=== PATIENT | female | born 1950 | race Caucasian/White ===

== ENCOUNTER 2020-02-05 16:07 | Emergency (ER) | payer OTHER, SELFPAY ==
--- NOTE | ~2020-02-05 | XR_ITS ---
EXAMINATION: XR knee LT min 4V EXAM DATE: 02/05/2020 16:38 INDICATION: Twisting injury, subsequent left knee pain. Initial encounter. TECHNIQUE: Left knee frontal, crosstable lateral, orthogonal oblique projections for interpretation. There is no prior study for comparison. FINDINGS: No evidence osteochondral defect or joint body in the left knee joint. There is mild to m oderate patellofemoral and medial tibiofemoral compartment primary osteoarthritis. There are no acute fractures or dislocations identified. There is no subcutaneous gas. There is small joint effusion. There are no radiopaque foreign bodies. IMPRESSION: 1. Left knee exam without acute osseous findings. 2. Small joint effusion. 3. Mild to moderate osteoarthritis. Reviewed, dictated and finalized at location A.
[2020-02-05 16:25] VITALS: BP 136/89; PULSE 77; RESP 18; TEMP 36.6; O2SAT 98
--- NOTE | 2020-02-05 16:33 | ED.GENADULT ---
HPI - General Adult General Chief complaint: Extremity Injury, Lower Stated complaint: Left Leg Pain Time Seen by Provider: 02/05/20 16:33 Source: patient and RN notes reviewed Mode of arrival: wheelchair Limitations: no limitations History of Present Illness HPI narrative: 69-year-old female presents with complains of left knee pain for the past 3 hours. Eliza says she missed a step twisting LT knee and fell today at approximately 13:00. No radiation of pain. No numbness or tingling, or bleeding. No swelling. No loss of mobility. Exacerbating factor consist of bearing weight. Denies hitting head, loss of consciousness, seizure activity, dizziness, or syncopal episodes. Remains active. The patient reports she have not been diagnosed with COVID-19. The patient reports she is not waiting for the results of a COVID-19 lab test. The patient reports she do not have fever, chills, weakness, or fatigue. The patient reports she do not have a new or worsening cough or shortness of breath. Denies chest pain. The patient reports she do not have any rhinorrhea, congestion, sore throat, loss of taste, nausea, vomiting, abdominal pain, and diarrhea. Tolerating po intake well. Denies recent traveling. Denies concerns for COVID-19 or exposures been home with limited outdoor exposure except for essential household needs and return home. At this time, patient is not suspected of having COVID-19. Some parts of this dictation were generated by voice recognition software and may contain typographical and/or grammatical inaccuracies. Related Data Home Medications Medication Instructions Recorded Confirmed carbidopa-levodopa tablet 02/05/20 levothyroxine 02/05/20 pitavastatin calcium [Livalo] mg 02/05/20 timolol maleate drp 02/05/20 Allergies Allergy/AdvReac Type Severity Reaction Status Date / Time No Known Drug Allergies Allergy Verified 03/10/11 11:13 Review of Systems Review of Systems: Narrative: CONSTITUTIONAL: Denies fever, chills, sweats. EYES: Denies visual changes, redness, discharge. ENT: Denies rhinorrhea, congestion, sore throat, otalgia. CARDIOVASCULAR: Denies chest pain, palpitations, edema. RESPIRATORY: Denies dyspnea, wheezing, cough. GASTROINTESTINAL: Denies abdominal pain, nausea, vomiting, diarrhea. SKIN: Denies rash or itching. MUSCULOSKELETAL: Denies acute back pain or myalgia. Complains of Left knee pain. NEUROLOGIC: Denies numbness, or focal weakness. PSYCHIATRIC: Denies anxiety or depression. All other systems reviewed & are unremarkable except as noted in HPI and below. [facility] Past Medical History Medical History (Updated 02/05/20 @ 17:09 by JAE Last) Glaucoma Hypercholesteremia Hypothyroidism Parkinson disease Surgical History Surgical History (Updated 02/05/20 @ 17:12 by JAE Last) History of brain surgery In the early s Family History Family History (Updated 02/05/20 @ 17:10 by JAE Last) Father Lung cancer Mother Heart disease Social History Social History (Updated 02/05/20 @ 17:11 by JAE Last) Smoking status: Former smoker Tobacco type: cigarettes Second hand tobacco smoke exposure: Yes (Occasionally when her smokes cigars) Alcohol intake: never Substance use: never Living arrangements: with family Occupation/Education: other Additional occupation/education comments: Homemaker Gender identity (if verbalized by the patient): Female Sexual Orientation (if Verbalized by the Patient): Straight or Heterosexual Comments At time of signature, agree with nurse past medical, surgical, social, and family history. There is no relevant family history pertinent to the presenting complaint. Exam Narrative: Exam Narrative: GENERAL: This is a well-nourished, well-developed patient, in no apparent distress. Talks in full sentences and ambulates with cane and LT an
[2020-02-05] MEDS: KETOROLAC (*BKC) 60 MG/2 ML VIAL IM (17:02)
== END 2020-02-05 17:22 | disposition home or self-care (01) ==
PROVIDERS: Emergency Provider Nurse Practitioner Family
DX: S83.92XA Sprain of unspecified site of left knee, initial encounter (principal); W10.9XXA Fall (on) (from) unspecified stairs and steps, initial encounter; H40.9 Unspecified glaucoma; E78.00 Pure hypercholesterolemia, unspecified; E03.9 Hypothyroidism, unspecified; G20 Parkinson's disease; Z87.891 Personal history of nicotine dependence
CPT/HCPCS: 73564; 96372; 99213; G0463; J1885

== ENCOUNTER 2023-03-10 13:53 | Inpatient (IN) | payer OTHER, MEDICAID, SELFPAY ==
--- NOTE | ~2023-03-10 | XR_ITS ---
EXAMINATION: XR chest 1V Exam Date/Time: 03/10/2023 14:30 NEWS CONTENT SPECIALIST HISTORY: fall Comparison: None. RESULT: Lines, tubes, and devices: Right axillary surgical clips. Lungs and pleura: Mild senescent change, otherwise clear. Cardiomediastinal silhouette: Unremarkable. Other: No acute osseous or upper abdominal finding. IMPRESSION: No acute cardiopulmonary process. Reviewed, dictated and finalized at location K. CONTENT SPECIALIST
--- NOTE | ~2023-03-10 | CT_ITS ---
EXAMINATION: CT cervical spine wo con DATE: 03/10/2023 14:58 INDICATION: trauma TECHNIQUE: Computed tomography (CT) of the cervical spine was performed without intravenous contrast. Automated exposure control and iterative reconstruction technique were employed. The dose-length pro duct was 155.91 mGy-cm. COMPARISON: None. FINDINGS: Vertebral Body Alignment: Intact. Minimal grade 1 anterolisthesis at C7-T1, likely on a degenerative basis Craniocervical and atlantoaxial alignment: Moderate degenerative change. Alignment intact. Osseous structures/fracture: No evidence of a lytic or blastic process in the visualized spine. No e vidence of acute fracture. Cervical soft tissues: The paraspinal soft tissues planes are maintained. Degenerative changes: Degenerative changes, without severe neural foraminal or central canal narrowin g. IMPRESSION: No acute fracture or traumatic malalignment in the cervical spine. Reviewed, dictated and finalized at location K. LY EDUCATOR
--- NOTE | ~2023-03-10 | XR_ITS ---
EXAM: XR hip RT min 3V w AP pelvis DATE: 03/10/2023 14:42 HISTORY: fall . COMPARISON: None available. FINDINGS: Decreased mineralization. Subcapital right femoral neck fracture with 4 mm medial displace ment and minimal lateral angulation. No other fracture detected. No lytic or blastic lesion. Mild lum bar degenerative disc disease and left hip osteoarthritis. No erosion or periosteal change. Soft tiss ues within normal limits. IMPRESSION: Mildly displaced and angulated right subcapital femoral neck fracture. Reviewed, dictated and finalized at location K. ING SAW OPERATOR IMPRESSION: Mildly displaced and angulated right subcapital femoral neck fractu re.
--- NOTE | ~2023-03-10 | XR_ITS ---
EXAMINATION: XR surgery orthopedic DATE: 03/12/2023 14:30 ORNAMENTAL METAL ERECTOR APPRENTICE INDICATION: RT HIP PINNING . TECHNIQUE: 2 fluoroscopic images of the right hip were obtained during right hip pinning performed by the surgeon. I was not present in the operating room. Fluoroscopy exposure time was 76.3 seconds. r Kerma 13.7 mGy. DAP 0.239 00 mGym2. COMPARISON: X-ray right hip 03/10/2023 FINDINGS: 3 cannulated screws fix the subcapital right proximal femoral fracture into near-anatomic alignment. IMPRESSION: Fluoroscopic documentation of right hip pinning. Please refer to the operative note for complete proc edural details . Reviewed, dictated and finalized at location K. MENTAL METAL ERECTOR APPRENTICE IMPRESSION: Fluoroscopic documentation of right hip pinning. Please refer to the operative note for complete procedural details .
--- NOTE | ~2023-03-10 | CT_ITS ---
EXAMINATION: CT brain wo con DATE: 03/10/2023 14:58 INDICATION: trauma . TECHNIQUE: Computed tomography (CT) of the head was performed without intravenous contrast. The mA wa s adjusted according to patient size. Iterative reconstruction technique was employed. The dose-lengt h product was 605.33 mGy-cm. COMPARISON: MR brain 02/05/2017. FINDINGS: Mild motion artifact. No acute intracranial hemorrhage or extra-axial fluid collection. No hydrocephalus, mass, or herniation. No acute ischemic infarct. Unremarkable dural venous sinus attenuation. No acute osseous abnormality. Right occipital craniectomy. Left ethmoid mucosal thickening, the remaining aerated spaces are clear. Mild atrophy and chronic white matter change. Atherosclerotic intracranial calcification. Bilateral l ens replacements. Right cerebellar atrophy/encephalomalacia. IMPRESSION: No acute intracranial process. Reviewed, dictated and finalized at location K. OOM ATTENDANT
[2023-03-10 13:54] VITALS: BP 125/52; PULSE 72; RESP 14; TEMP 36.6; O2SAT 98
--- NOTE | 2023-03-10 14:06 | ED.FALL ---
HPI - Fall General Chief Complaint: Fall Stated Complaint: fall with hip pain Time Seen by Provider: 03/10/23 14:06 History of Present Illness HPI Narrative: Patient is a 72-year-old female with history of Parkinson's, here after a fall. She states that she ambulates with a walker at [facility] and was walking down the hallway to meet her daughter when she lost hold of her walker and fell to the ground onto her right side. She notes that she landed on her right hip and was able to get off the floor with multiple assists at her facility. She was able to stand again but had difficulty bearing weight on the right hip. She does not believe she lost consciousness or hit her head. She does not believe she takes any blood thinners. No prodromal chest pain, light headedness or shortness of breath. She does not believe she has had any prior orthopedic surgeries. Daughter at bedside is DPOA and helps with additional history. Related Data Home Medications Medication Instructions Recorded Confirmed carbidopa 10 mg-levodopa 100 mg tablet 02/05/20 tablet levothyroxine 50 mcg tablet 02/05/20 pitavastatin calcium 1 mg tablet mg 02/05/20 (Livalo) timolol maleate 0.5 % eye drops drp 02/05/20 Allergies Allergy/AdvReac Type Severity Reaction Status Date / Time No Known Drug Allergies Allergy Other Verified 03/10/23 13:54 Review of Systems Review of Systems: All systems reviewed & are unremarkable except as noted in HPI and below PMFSH Past Medical History Medical History (Updated 03/10/23 @ 15:32 by Catalina Foy MD) Glaucoma Hypercholesteremia Hypothyroidism Parkinson disease Surgical History Surgical History (Updated 02/05/20 @ 17:12 by JAE Last) History of brain surgery In the early s Family History Family History (Updated 02/05/20 @ 17:10 by JAE Last) Father Lung cancer Mother Heart disease Social History Social History (Updated 02/05/20 @ 17:11 by JAE Last) Smoking status: Former smoker Tobacco type: cigarettes Second hand tobacco smoke exposure: Yes (Occasionally when her smokes cigars) Alcohol intake: never Substance use: never Living arrangements: with family Occupation/Education: other Additional occupation/education comments: Homemaker Gender identity (if verbalized by the patient): Female Sexual Orientation (if Verbalized by the Patient): Straight or Heterosexual Exam Narrative: GENERAL: Well-appearing, well-nourished, and in no acute distress. HEAD: Normocephalic, atraumatic. EYES: PERRLA and EOMI. ENT: Nares clear. Mucous membranes moist. NECK: Supple. No c-spine tenderness CHEST: Clear to auscultation. No respiratory distress. No chest wall tenderness. HEART: Regular rate and rhythm. Normal peripheral pulses. ABDOMEN: Soft, nontender, nondistended. EXTREMITIES: Bilateral upper extremities atraumatic tenderness appreciated. No thoracic or lumbar tenderness appreciated. She does have tenderness over the right lateral hip with decreased range of motion due to pain. Nontender femur, knee, tib-fib, ankle on the right side with normal ROM in the right knee and hip. Strong DP pulse which is equal bilaterally with normal sensation distal to the injury. No tenderness at the pubic symphysis or left hip/leg. SKIN: Warm, dry, no rash. NEURO: No focal deficits. Alert and oriented x3. PSYCH: Normal mood and affect. Course Course Emergency Course: Chart review performed. Patient here after a fall at [facility] onto her right side. Triage vitals within normal limits. Express care note in our system from 2019 reviewed she was seen for knee pain. Home health care discharge summary report on 12/19/22 also reviewed. They note she requires rollator/walker for gait. Patient seen and evaluated. Appears to have had a mechanical fall by losing her balance after letting go of her walker. XR
[2023-03-10] MEDS: HYDROcodone/acetaminophen (*CRX) 5-325 MG TABLET 1 TAB PO ×2 (14:22→22:40)
[2023-03-10 15:02] VITALS: BP 136/89; PULSE 92; RESP 16; O2SAT 100
[2023-03-10 15:19] VITALS: BP 166/83; PULSE 80; RESP 16; TEMP 36.7; O2SAT 98
[2023-03-10 16:01] VITALS: BP 123/89; PULSE 80; RESP 16; O2SAT 100
[2023-03-10 16:01] LABS: Basophils Percent Auto 0.3 % (0.2-1.2); Eosinophils Percent Auto 0.5 % (0-4.4); Hematocrit 40.9 % (37.0-47.0); Hemoglobin 13.9 g/dL (12.0-15.0); Immature Granulocyte Absolute 0.05 K/mm3 (0.00-0.031); Immature Granulocyte Percent A 0.8 % (0-0.5); Lymphocytes Absolute Auto 0.28 K/mm3 (0.9-3.2); Lymphocytes Percent Auto 4.3 % (18.3-44.2); Monocytes Absolute Auto 0.5 K/mm3 (0.1-0.6); Monocytes Percent Auto 7.1 % (2.6-8.5); Neutrophils Absolute Auto 5.7 K/mm3 (1.3-6.7); Platelet Count Result 164 k/mm3 (150-375); Red Blood Count 4.35 M/mm3 (4.2-5.4); Red Cell Distribution Width 12.5 % (11.5-14.5); White Blood Count 6.5 K/mm3 (4.5-10.0)
[2023-03-10 16:07] LABS: Appearance Urine Clear (Clear); Bacteria Urine None Seen /hpf; Bilirubin Urine Negative (Negative); Color Urine Yellow (Yellow); Glucose Urine UA Negative (Negative); Ketones Urine Negative (Negative); Leukocyte Esterase Ur Negative LEU/UL (Negative); Nitrate Urine Negative (Negative); Non Pathogenic Casts 0-2; Protein Urine Negative (Negative); Specific Grav Ur 1.012 (1.001-1.035); Squamous Epithelial Cell Urine None seen /hpf (Few); Urobilinogen Urine 0.2 mg/dL (<2.0); WBC Urine 0-5 /hpf
[2023-03-10 16:10] LABS: Add Urine Microscopic? YES; Alanine Aminotransferase 19 U/L (6-35); Albumin Level 4.1 g/dL (3.5-5.1); Alkaline Phosphatase 67 U/L (38-126); Anion Gap 6 mmol/L (8-16); Aspartate Amino Transferase 26 U/L (14-36); Bilirubin,Total 0.5 mg/dL (0.2-1.3); Blood Urea Nitrogen 11 mg/dL (7-17); Carbon Dioxide 28 mmol/L (22-30); Chloride 105 mmol/L (98-107); Estimated CRCL calculation 55 ml/min; Estimated Glomerular Filt Rate > 60; Glucose 112 mg/dL (65-110); Potassium 3.4 mmol/L (3.4-5.0); Sodium 139 mmol/L (137-145)
[2023-03-10] MEDS: MORPHINE SULFATE (*CRX) 4 MG/ML INJ 2 MG IV PUSH (16:11)
[2023-03-10] MEDS: ONDANSETRON INJ 4 MG/2 ML VIAL IV PUSH (16:11)
[2023-03-10 16:18] LABS: Partial Thromboplastin Time 27.3 SECONDS (22.3-36.8)
[2023-03-10 17:01] VITALS: BP 125/88; PULSE 78; RESP 16; TEMP 36.6; O2SAT 96
[2023-03-10 17:58] VITALS: BMI 20.9
--- NOTE | 2023-03-10 18:09 | ADMGEN ---
This patient, Eliza Gomez, was admitted to 3 [facility] Surg Room 307-01 AT 1740. Patient/family oriented to hospital policies and general routines including ID bracelet, bed and alarms, visiting hours, pain management, procedures, bathroom and other care routines, personal items, smoking policy, room service/diet, and visiting hours. Information on how to activate the Rapid Response Team has been discussed. Patient/Family are encouraged to report perceived risks to care and to ask questions if they do not understand what they are told or what they should do.
--- NOTE | 2023-03-10 19:38 | PM.IMHP ---
H&P: HPI History of Present Illness Date/Time: 03/10/23 17:30 Chief Complaint: Right hip pain after fall. Narrative: This is a pleasant 72-year-old female with Parkinson's disease, hypothyroidism, glaucoma, and breast cancer who presented to the emergency department via private vehicle from [facility] for evaluation of right hip pain after a fall. She was walking down the [facility] living facility when she lost a hold of her walker and fell down onto the ground landing on her right side. She was eventually able to get off the floor with multiple assist is but she had significant pain bearing weight on the right leg due to pain in the hip. She denies head trauma. There was no loss of consciousness or prodromal symptoms leading up to the fall. At the time my evaluation she has only minimal discomfort however has pretty significant pain when trying to move that right leg. Vital signs have been stable since arrival. CMP and CBC were pretty unremarkable. Hip and pelvis x-ray shows mildly displaced and angulated right subcapital femoral neck fracture and she is being admitted in this setting for pain control and orthopedic consultation. Review of Systems Review of Systems: Twelve systems were reviewed. 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 She cannot hear well a home the left side since she was young following resection of a benign brain tumor. No recent cold or flu symptoms. No chest pain or shortness breath. No syncope or near syncope. No history of cardiac or pulmonary disease. Except as documented, all other systems were reviewed and are negative. [facility] Past Medical History Medical History (Updated 03/10/23 @ 21:02 by Mary Gu PA-C) Breast cancer Dyslipidemia Glaucoma Hypothyroidism Parkinson disease Surgical History Surgical History (Updated 03/10/23 @ 20:58 by Mary Gu PA-C) History of bilateral mastectomy History of brain surgery In the 1980s, tumor was benign. Family History Family History Father Lung cancer Mother Heart disease Social History Social History (Updated 03/10/23 @ 20:59 by Mary Gu PA-C) Social History: Healthcare power of bankruptcy attorney: Heather Galvez, daughter. Code status: Do not resuscitate. Smoking status: Former smoker Second hand tobacco smoke exposure: Yes (Occasionally when her smokes cigars) Alcohol intake: never Substance use: never Living arrangements: with family Additional living arrangements comments: Lives in assisted living at [facility]. She has a son and daughter. Occupation/Education: other Additional occupation/education comments: Homemaker. Spiritual care concerns: No Meds Home Medications and Allergies Home Medications Medication Instructions Recorded Confirmed Type levothyroxine 50 mcg tablet 50 mcg PO DAILY 02/05/20 03/10/23 History pitavastatin calcium 1 mg tablet 1 mg PO HS 02/05/20 03/10/23 History (Livalo) timolol maleate 0.5 % eye drops 1 drp EACH EYE BID 02/05/20 03/10/23 History acetaminophen 325 mg tablet 325 mg PO Q6H PRN Pain, Mild 03/10/23 03/10/23 History anastrozole 1 mg tablet 1 mg PO DAILY 03/10/23 03/10/23 History brimonidine 0.2 % eye drops 1 drp EACH EYE Q8H 03/10/23 03/10/23 History cholecalciferol (vitamin D3) 25 25 mcg PO DAILY 03/10/23 03/10/23 History mcg (1,000 unit) tablet hydrocodone 5 mg-acetaminophen 325 1 tablet PO Q4H PRN Moderate Pain 03/10/23 03/10/23 History mg tablet (Scale Score 5-6) latanoprost 0.005 % eye drops 1 drp EACH EYE QPM 03/10/23 03/10/23 History meclizine 25 mg tablet 25 mg PO QID PRN Dizziness 03/10/23 03/10/23 History sennosides 8.6 mg tablet (senna) 8.6 mg PO DAILY PRN Constipation 03/10/23 03/10/23 History Allergies Allergy/AdvReac Type Severity Reaction Status Date / Time No Known Drug Allergies Allergy Other Verified 03/10/23 13:54 Vital Signs
[2023-03-10] MEDS: MORPHINE SULFATE (*CRX) 2 MG/ML INJ IV PUSH (21:24)
[2023-03-10 21:44] VITALS: BP 138/68; PULSE 83; RESP 18; TEMP 37; O2SAT 91
[2023-03-10] MEDS: BRIMONIDINE TARTRATE 0.2% OP SOLN 5 ML BTL 1 DROP EACH EYE (22:41)
[2023-03-11] MEDS: HYDROcodone/acetaminophen (*CRX) 5-325 MG TABLET 1 TAB PO ×5 (02:55→19:51)
[2023-03-11] MEDS: BRIMONIDINE TARTRATE 0.2% OP SOLN 5 ML BTL 1 DROP EACH EYE ×3 (05:56→19:57)
[2023-03-11] MEDS: LEVOTHYROXINE SODIUM 50 MCG TABLET PO (05:56)
[2023-03-11] MEDS: MORPHINE SULFATE (*CRX) 2 MG/ML INJ IV PUSH ×2 (05:57→20:50)
[2023-03-11 06:00] VITALS: BP 121/58; PULSE 101; RESP 20; TEMP 36.4; O2SAT 97
[2023-03-11 06:37] LABS: Hemoglobin 13.1 g/dL (12.0-15.0); Mean Corpuscular HGB Conc 33.6 g/dl (32-36); Mean Corpuscular Hemoglobin 31.8 pg (26-34); Mean Corpuscular Volume 94.7 fl (80-100); Mean Platelet Volume 11.1 fl (7.4-10.4); Platelet Count Result 143 k/mm3 (150-375); Red Blood Count 4.12 M/mm3 (4.2-5.4); Red Cell Distribution Width 12.6 % (11.5-14.5); White Blood Count 5.8 K/mm3 (4.5-10.0)
[2023-03-11 06:47] LABS: Anion Gap 8 mmol/L (8-16); Blood Urea Nitrogen 11 mg/dL (7-17); Calcium 8.6 mg/dL (8.4-10.2); Carbon Dioxide 27 mmol/L (22-30); Chloride 100 mmol/L (98-107); Estimated CRCL calculation 52 ml/min; Estimated Glomerular Filt Rate > 60; Glucose 112 mg/dL (65-110); Magnesium 2.1 mg/dL (1.6-2.3); Potassium 3.4 mmol/L (3.4-5.0); Sodium 135 mmol/L (137-145)
[2023-03-11 08:00] VITALS: O2SAT 97
[2023-03-11] MEDS: CHOLECALCIFEROL 1,000 UNITS TABLET 1000 UNITS PO (08:40)
[2023-03-11] MEDS: ENOXAPARIN 40 MG/0.4 ML SYRINGE SUB-Q (08:40)
[2023-03-11] MEDS: TIMOLOL MALEATE 0.5% OP SOLN 5 ML BOTTLE 1 DROP EACH EYE ×2 (08:41→17:24)
[2023-03-11 08:54] LABS: Thyroid Stimulating Hormone Reflex 0.436 uIU/mL (0.465-4.68)
--- NOTE | 2023-03-11 09:09 | PM.IMPN ---
Progress Note: A&P Assessment and Plan (1) Closed subcapital fracture of neck of right femur: Code(s): S72.011A - Unspecified intracapsular fracture of right femur, initial encounter for closed fracture Status: Acute Assessment and Plan: Analgesics available as needed. Dr. Suarez consulted; plans are for surgery on Saturday. (2) Fall from ground level: Code(s): W18.30XA - Fall on same level, unspecified, initial encounter Status: Acute Assessment and Plan: Patient had a mechanical fall, her walker got too far ahead of her. (3) Parkinson disease: Code(s): G20.A1 - Parkinson's disease without dyskinesia, without mention of fluctuations Status: Acute Assessment and Plan: She is not on any medications for this that I can see. (4) Hypothyroidism: Code(s): E03.9 - Hypothyroidism, unspecified Status: Acute Assessment and Plan: Continue levothyroxine and check TSH. (5) Dyslipidemia: Code(s): E78.5 - Hyperlipidemia, unspecified Status: Acute Assessment and Plan: On Livalo. (6) Glaucoma: Code(s): H40.9 - Unspecified glaucoma Status: Acute Assessment and Plan: Continue timolol, latanoprost, and brimonidine. Plan Pain control Surgery planned 03/12 Time Spent With Patient Time with patient: 25 - 35 minutes Subjective Date/time seen: 03/11/23 09:09 Interval history: 03/10: This is a pleasant 72-year-old female with Parkinson's disease, hypothyroidism, glaucoma, and breast cancer who presented to the emergency department via private vehicle from [facility] for evaluation of right hip pain after a fall. She was walking down the [facility] when she lost a hold of her walker and fell down onto the ground landing on her right side. She was eventually able to get off the floor with multiple assist is but she had significant pain bearing weight on the right leg due to pain in the hip. She denies head trauma. There was no loss of consciousness or prodromal symptoms leading up to the fall. At the time my evaluation she has only minimal discomfort however has pretty significant pain when trying to move that right leg. Vital signs have been stable since arrival. CMP and CBC were pretty unremarkable. Hip and pelvis x-ray shows mildly displaced and angulated right subcapital femoral neck fracture and she is being admitted in this setting for pain control and orthopedic consultation. 03/11: Met with patient and her son this morning. Patient reports her neck has been hurting but it is better after pain medication this morning. CT head and Cervical Spine obtained in ER and interpreted as unremarkable by Radiology. Dr. Suarez is planning to operate tomorrow. Patient reports doing well this morning. Review of Systems Review of Systems: All systems reviewed & are unremarkable except as noted in HPI and below Exam Narrative: General: Well-developed female in the semi-Bourgeois position in bed in mild amount of pain. HEENT: Normocephalic, atraumatic. Wearing corrective lenses. Extraocular motions intact. Slightly hard of hearing. Moist mucous membranes. Neck: No JVD. No palpable muscle spasm. Positioned stiffly but able to mobilize. Respiratory: Lungs are clear to auscultation bilaterally. Cardiovascular: Regular rate and rhythm with S1-S2. Gastrointestinal: Abdomen is soft, nontender, and nondistended with positive bowel sounds. Skin: Warm and dry. No rash or lesions on limited exam. Extremities: No cyanosis, clubbing, or edema. Radial and pedal pulses intact. Musculoskeletal: Tender to palpation over the right anterolateral hip without gross deformity. Neurological: Alert. Cranial nerves 2-12 are grossly intact. No gross focal deficits to casual conversation. Psychiatric: Pleasant and cooperative with appropriate mood and affect. Seems slightly forgetful as she defers some questions t
[2023-03-11] MEDS: ANASTROZOLE (*CHEMO) 1 MG TABLET PO (09:10)
[2023-03-11] MEDS: CARBIDOPA/LEVODOPA 12.5/50 MG TABLET 1 TABLET PO ×3 (10:32→19:51)
[2023-03-11] MEDS: CARBIDOPA/LEVODOPA 25/100 MG TABLET 1 TABLET PO ×3 (10:32→19:51)
[2023-03-11 14:00] VITALS: BP 103/54; PULSE 60; RESP 18; TEMP 37; O2SAT 93
[2023-03-11 14:17] LABS: Free T4 Free Thyroxine Reflex 1.28 ng/dL (0.78-2.19)
[2023-03-11 15:16] LABS: Total Triiodothyronine (T3) 0.92 NG/ML (0.97-1.69)
--- NOTE | 2023-03-11 16:44 | PM.CNOR ---
Assessment and Plan Assessment and plan (1) Closed subcapital fracture of neck of right femur: Qualifiers: Encounter type: initial encounter Qualified Code(s): S72.011A - Unspecified intracapsular fracture of right femur, initial encounter for closed fracture Code(s): S72.011A - Unspecified intracapsular fracture of right femur, initial encounter for closed fracture Status: Acute Assessment and Plan: 72-year-old female with an impacted right subcapital femoral neck fracture. I discussed the injury with the patient and her daughter who is with her. She does reside at [facility] and will be unable to return to their straight from the hospital and so will need rehab. I explained to them that it would be eight weeks of protected weight-bearing in if an x-ray at the two month point shows satisfactory healing that she go to full weight-bearing and likely return to her home. Risks and potential complications were discussed in detail and questions answered. Thank you for the consultation. Planned surgical intervention tomorrow for pinning in-situ right subcapital femoral neck fracture. History of Present Illness HPI Consult date: 03/11/23 Chief complaint: Right Hip Fracture Narrative: This document created with [id number] technology and is subject to leg breaker irregularities. 72-year-old female who fell yesterday suffering an impacted subcapital femoral neck fracture at the right hip. No other injuries with this occurrence. History of parkinsonism. Currently resides at [facility]. Review of Systems Review of Systems: All systems reviewed & are unremarkable except as noted in HPI and below Constitutional: Constitutional: Reports no additional constitutional complaints [facility] Past Medical History Medical History (Updated 03/11/23 @ 16:48 by Ankit Suarez MD) Breast cancer Closed subcapital fracture of neck of right femur Impacted subcapital femoral neck fracture right hip Dyslipidemia Glaucoma Hypothyroidism Parkinson disease Surgical History Surgical History (Updated 03/10/23 @ 20:58 by Mary Gu PA-C) History of bilateral mastectomy History of brain surgery In the 1980s, tumor was benign. Family History Family History Father Lung cancer Mother Heart disease Social History Social History (Updated 03/10/23 @ 20:59 by Mary Gu PA-C) Social History: Healthcare power of securities attorney: Heather Galvez, daughter. Code status: Do not resuscitate. Smoking status: Former smoker Second hand tobacco smoke exposure: Yes (Occasionally when her smokes cigars) Alcohol intake: never Substance use: never Living arrangements: with family Additional living arrangements comments: Lives in assisted living at [facility]. She has a son and daughter. Occupation/Education: other Additional occupation/education comments: Homemaker. Spiritual care concerns: No Meds Home Medications and Allergies Home Medications Medication Instructions Recorded Confirmed Type levothyroxine 50 mcg tablet 50 mcg PO DAILY 02/05/20 03/10/23 History pitavastatin calcium 1 mg tablet 1 mg PO HS 02/05/20 03/10/23 History (Livalo) timolol maleate 0.5 % eye drops 1 drp EACH EYE BID 02/05/20 03/10/23 History acetaminophen 325 mg tablet 325 mg PO Q6H PRN Pain, Mild 03/10/23 03/10/23 History anastrozole 1 mg tablet 1 mg PO DAILY 03/10/23 03/10/23 History brimonidine 0.2 % eye drops 1 drp EACH EYE Q8H 03/10/23 03/10/23 History cholecalciferol (vitamin D3) 25 25 mcg PO DAILY 03/10/23 03/10/23 History mcg (1,000 unit) tablet hydrocodone 5 mg-acetaminophen 325 1 tablet PO Q4H PRN Moderate Pain 03/10/23 03/10/23 History mg tablet (Scale Score 5-6) latanoprost 0.005 % eye drops 1 drp EACH EYE QPM 03/10/23 03/10/23 History meclizine 25 mg tablet 25 mg PO QID PRN Dizziness 03/10/2302/14
[2023-03-11] MEDS: LATANOPROST 0.005% OP SOLN 2.5 ML BTL 1 DROP EACH EYE (17:24)
[2023-03-11] MEDS: SENNOSIDES 8.6 MG TABLET PO (19:51)
[2023-03-11 20:38] VITALS: BP 119/89; PULSE 65; RESP 16; TEMP 36.6; O2SAT 96
[2023-03-12] VITALS (17 sets, daily range): BP systolic 115–152; BP diastolic 67–98; PULSE 54–78; RESP 12–22; TEMP 36.3–37.1; O2SAT 92–100
[2023-03-12] MEDS: HYDROcodone/acetaminophen (*CRX) 5-325 MG TABLET 1 TAB PO ×3 (00:13→21:21)
[2023-03-12] MEDS: BRIMONIDINE TARTRATE 0.2% OP SOLN 5 ML BTL 1 DROP EACH EYE ×2 (05:41→21:25)
[2023-03-12] MEDS: LEVOTHYROXINE SODIUM 50 MCG TABLET PO (05:42)
[2023-03-12 08:11] LABS: Basophils Percent Auto 0.2 % (0.2-1.2); Hematocrit 40.6 % (37.0-47.0); Hemoglobin 13.6 g/dL (12.0-15.0); Immature Granulocyte Absolute 0.01 K/mm3 (0.00-0.031); Immature Granulocyte Percent A 0.2 % (0-0.5); Immature Platelet Fraction Pct 6.9 % (0.9-11.2); Lymphocytes Absolute Auto 0.43 K/mm3 (0.9-3.2); Lymphocytes Percent Auto 7.7 % (18.3-44.2); Mean Corpuscular HGB Conc 33.5 g/dl (32-36); Mean Corpuscular Hemoglobin 31.9 pg (26-34); Mean Corpuscular Volume 95.1 fl (80-100); Mean Platelet Volume 11.2 fl (7.4-10.4); Monocytes Absolute Auto 0.6 K/mm3 (0.1-0.6); Monocytes Percent Auto 10.6 % (2.6-8.5); Neutrophils Absolute Auto 4.6 K/mm3 (1.3-6.7); Neutrophils Percent Auto 81.3 % (45.5-73.1); Platelet Count Result 118 k/mm3 (150-375); Red Blood Count 4.27 M/mm3 (4.2-5.4); Red Cell Distribution Width 12.4 % (11.5-14.5); White Blood Count 5.6 K/mm3 (4.5-10.0)
[2023-03-12 08:22] LABS: Anion Gap 10 mmol/L (8-16); Blood Urea Nitrogen 15 mg/dL (7-17); Calcium 8.5 mg/dL (8.4-10.2); Carbon Dioxide 24 mmol/L (22-30); Chloride 99 mmol/L (98-107); Estimated CRCL calculation 52 ml/min; Estimated Glomerular Filt Rate > 60; Glucose 103 mg/dL (65-110); Phosphorus 3.8 mg/dL (2.5-4.5); Potassium 3.3 mmol/L (3.4-5.0); Sodium 133 mmol/L (137-145)
[2023-03-12] MEDS: CARBIDOPA/LEVODOPA 12.5/50 MG TABLET 1 TABLET PO ×3 (08:35→21:21)
[2023-03-12] MEDS: CARBIDOPA/LEVODOPA 25/100 MG TABLET 1 TABLET PO ×3 (08:35→21:21)
[2023-03-12] MEDS: TIMOLOL MALEATE 0.5% OP SOLN 5 ML BOTTLE 1 DROP EACH EYE ×2 (11:05→18:01)
--- NOTE | 2023-03-12 12:35 | PM.IMPN ---
Progress Note: A&P Assessment and Plan (1) Closed subcapital fracture of neck of right femur: Qualifiers: Encounter type: initial encounter Qualified Code(s): S72.011A - Unspecified intracapsular fracture of right femur, initial encounter for closed fracture Code(s): S72.011A - Unspecified intracapsular fracture of right femur, initial encounter for closed fracture Status: Acute Assessment and Plan: Analgesics available as needed. Dr. Suarez consulted; plans are for surgery on 03/12. (2) Fall from ground level: Code(s): W18.30XA - Fall on same level, unspecified, initial encounter Status: Acute Assessment and Plan: Patient had a mechanical fall, her walker got too far ahead of her. (3) Parkinson disease: Code(s): G20.A1 - Parkinson's disease without dyskinesia, without mention of fluctuations Status: Acute Assessment and Plan: Restarted carbidopa levodopa (4) Hypothyroidism: Code(s): E03.9 - Hypothyroidism, unspecified Status: Acute Assessment and Plan: Continue levothyroxine and check TSH. (5) Dyslipidemia: Code(s): E78.5 - Hyperlipidemia, unspecified Status: Acute Assessment and Plan: On Livalo. (6) Glaucoma: Code(s): H40.9 - Unspecified glaucoma Status: Acute Assessment and Plan: Continue timolol, latanoprost, and brimonidine. Plan Pain control Surgery planned 03/12 Time Spent With Patient Time with patient: 25 - 35 minutes Subjective Date/time seen: 03/12/23 12:35 Interval history: 03/10: This is a pleasant 72-year-old female with Parkinson's disease, hypothyroidism, glaucoma, and breast cancer who presented to the emergency department via private vehicle from [facility] for evaluation of right hip pain after a fall. She was walking down the [facility] when she lost a hold of her walker and fell down onto the ground landing on her right side. She was eventually able to get off the floor with multiple assist is but she had significant pain bearing weight on the right leg due to pain in the hip. She denies head trauma. There was no loss of consciousness or prodromal symptoms leading up to the fall. At the time my evaluation she has only minimal discomfort however has pretty significant pain when trying to move that right leg. Vital signs have been stable since arrival. CMP and CBC were pretty unremarkable. Hip and pelvis x-ray shows mildly displaced and angulated right subcapital femoral neck fracture and she is being admitted in this setting for pain control and orthopedic consultation. 03/11: Met with patient and her son this morning. Patient reports her neck has been hurting but it is better after pain medication this morning. CT head and Cervical Spine obtained in ER and interpreted as unremarkable by Radiology. Dr. Suarez is planning to operate tomorrow. Patient reports doing well this morning. 03/12: Patient to go to the operating room at 2:30 p.m. for hip repair. She denies any pain or shortness of breath now. Patient's only complaint is that she is feeling constipated and she wants prune juice. Review of Systems Review of Systems: All systems reviewed & are unremarkable except as noted in HPI and below Exam Narrative: General: Well-developed female in the semi-Bourgeois position in bed in mild amount of pain. HEENT: Normocephalic, atraumatic. Wearing corrective lenses. Extraocular motions intact. Slightly hard of hearing. Moist mucous membranes. Neck: No JVD. No palpable muscle spasm. Positioned stiffly but able to mobilize. Respiratory: Lungs are clear to auscultation bilaterally. Cardiovascular: Regular rate and rhythm with S1-S2. Gastrointestinal: Abdomen is soft, nontender, and nondistended with positive bowel sounds. Skin: Warm and dry. No rash or lesions on limited exam. Extremities: No cyanosis, clubbing, or edema. Radial
--- NOTE | 2023-03-12 13:38 | WPDANESEPPF ---
Anes - Initial Pre Proc Eval Procedure: Operation Date: 03/12/23 14:30 Proposed Procedures p Right Hip Pinning - Ankit Suarez MD Date/Time: 03/12/23 13:38 Surgeon: Gian Horan MD Pre Op Diagnosis: Right Hip Fracture Patient Data Age: 72 Gender: F Height: 1.65 m Weight: 54.1 kg Last Vital Signs Temp 36.4 C 03/12/23 04:33 Pulse 73 03/12/23 04:33 Resp 16 03/12/23 04:33 BP 147/67 H 03/12/23 04:33 Pulse Ox 92 03/12/23 08:00 O2 Del Method Room Air 03/12/23 08:00 Allergies Allergy/AdvReac Type Severity Reaction Status Date / Time No Known Drug Allergies Allergy Other Verified 03/10/23 13:54 Home Medications Medication Instructions Recorded Confirmed Type levothyroxine 50 mcg tablet 50 mcg PO DAILY 02/05/20 03/10/23 History pitavastatin calcium 1 mg tablet 1 mg PO HS 02/05/20 03/10/23 History (Livalo) timolol maleate 0.5 % eye drops 1 drp EACH EYE BID 02/05/20 03/10/23 History acetaminophen 325 mg tablet 325 mg PO Q6H PRN Pain, Mild 03/10/23 03/10/23 History anastrozole 1 mg tablet 1 mg PO DAILY 03/10/23 03/10/23 History brimonidine 0.2 % eye drops 1 drp EACH EYE Q8H 03/10/23 03/10/23 History cholecalciferol (vitamin D3) 25 25 mcg PO DAILY 03/10/23 03/10/23 History mcg (1,000 unit) tablet hydrocodone 5 mg-acetaminophen 325 1 tablet PO Q4H PRN Moderate Pain 03/10/23 03/10/23 History mg tablet (Scale Score 5-6) latanoprost 0.005 % eye drops 1 drp EACH EYE QPM 03/10/23 03/10/23 History meclizine 25 mg tablet 25 mg PO QID PRN Dizziness 03/10/23 03/10/23 History sennosides 8.6 mg tablet (senna) 8.6 mg PO DAILY PRN Constipation 03/10/23 03/10/23 History carbidopa 25 mg-levodopa 100 mg 1.5 tablet PO TID 03/11/23 03/11/23 History tablet Laboratory Tests 03/11/23 03/12/23 06:20 07:54 WBC 5.6 K/mm3 (4.5-10.0) RBC 4.27 M/mm3 (4.2-5.4) Hgb 13.6 g/dL (12.0-15.0) Hct 40.6 % (37.0-47.0) MCV 95.1 fl (80-100) MCH 31.9 pg (26-34) MCHC 33.5 g/dl (32-36) RDW 12.4 % (11.5-14.5) Plt Count 118 L k/mm3 (150-375) MPV 11.2 H fl (7.4-10.4) Immature Gran % (Auto) 0.2 % (0-0.5) Neut % (Auto) 81.3 H % (45.5-73.1) Lymph % (Auto) 7.7 L % (18.3-44.2) Whitfield % (Auto) 10.6 H % (2.6-8.5) Eos % (Auto) 0.0 % (0-4.4) Baso % (Auto) 0.2 % (0.2-1.2) Lymph # (Auto) 0.43 L K/mm3 (0.9-3.2) Whitfield # (Auto) 0.6 K/mm3 (0.1-0.6) Eos # (Auto) 0.0 K/mm3 (0-0.3) Baso # (Auto) 0.0 K/mm3 (0.0-0.1) Abs Immat Gran (auto) 0.01 K/mm3 (0.00-0.031) Absolute Neuts (auto) 4.6 K/mm3 (1.3-6.7) Absolute Nucleated RBC 0.0 K/mm3 (0.0-0.012) Nucleated RBC % 0.0 % (0.0-0.2) % Immature Plt Fraction 6.9 % (0.9-11.2) Sodium 133 L mmol/L (137-145) Potassium 3.3 L mmol/L (3.4-5.0) Chloride 99 mmol/L (98-107) Carbon Dioxide 24 mmol/L (22-30) Anion Gap 10 mmol/L (8-16) BUN 15 mg/dL (7-17) Creatinine 0.70 mg/dL (0.7-1.0) Estim Creat Clear Calc 52 ml/min Estimated GFR > 60 (59 - ) Glucose 103 mg/dL (65-110) Calcium 8.5 mg/dL (8.4-10.2) Phosphorus 3.8 mg/dL (2.5-4.5) Albumin 4.0 g/dL (3.5-5.1) Free T4 1.28 ng/dL (0.78-2.19) Total T3 0.92 L NG/ML (0.97-1.69) Patient hx anesthesia problems: none Family hx anesthesia problems: none Results Review: All pre-operative results and documents have been reviewed as part of the pre-operative evaluation. [facility], [facility] Past Medical History Medical History (Updated 03/11/23 @ 16:48 by Ankit Suarez MD) Breast cancer Closed subcapital fracture of neck of right femur Impacted subcapital femoral neck fracture right hip Dyslipidemia Glaucoma Hypothyroidism Parkinson disease Surgical History Surgical History (Updated 03/10/23 @ 20:58 by
--- NOTE | 2023-03-12 13:59 | WPDHPUPDATE1 ---
History and Physical Update Update Date/Time: 03/12/23 13:59 History and Physical has been reviewed, including an updated exam of the patient. There are NO changes in the patient's condition. Risks, benefits, and alternatives have been discussed and questions answered. Patient agrees to proceed with procedure.
[2023-03-12] MEDS: ceFAZolin 2 GM/D5W 50 ML 2 GM/50 ML BAG IVPB ×2 (14:26→21:22)
[2023-03-12] MEDS: BUPIVACAINE/EPINEPHRINE 0.5% 50 ML VIAL 10 ML INFILTRATE (15:10)
[2023-03-12] MEDS: LACTATED RINGERS 1,000 ML 30 ML IV CONT ×2 (15:25)
--- NOTE | 2023-03-12 15:38 | P.OP_ITS ---
Procedure Note - Detailed Date of Procedure 03/12/23 Pre-op Diagnosis right subcapital femoral neck fracture Post-op Diagnosis Same Procedure Performed Fluoroscopically assisted pinning in-situ right femoral neck fracture Surgeon Ankit Suarez MD Regional Marketing Manager [facility] [place] Anesthesia General Description of Procedure The patient was identified and proper site identified. She was taken to the operating room after general anesthetic induction and intubation, she was transferred to the Conde table positioning her supine taking care to pad her torso extremities. Fracture was assessed and noted to be in unchanged impacted position. The right hip and thigh was prepped and draped in the usual sterile fashion. several cc of 0.5% Marcaine and epinephrine solution was injected into the subcutaneous tissue in the area the incision. Longitudinal incision was made adjacent to the greater trochanter proximal femur. Subcutaneous tissue sharply dissected in ID band was divided in line with the incision. Using fluoroscopic assistance, three guide pins for the 7.0 cannulated screws were placed into the femoral neck and head. Over the these pins 37.0 cannulated screws were placed and the pins removed. Hardware placement was assessed fluoroscopically on the AP and lateral views and noted to be satisfactory. The wound was irrigated with sterile saline. Deep fascia reapproximated with 0 Vicryl. Deeper layers and subcu reapproximated with 0 Vicryl. Skin closed with three 0 V lock and dennis. Sterile dressing was applied. She tolerated the procedure well. She was awakened, extubated and taken recovery area in stable condition. She received perioperative antibiotics. Estimated blood loss was negligible. Estimated Blood Loss 15 Drains No Packing No Pathology None sent Complications No immediate complications Condition Stable Disposition PACU [facility] Billing Surgery - Charge Forward: Surgery Billing ([id number], [id number])
[2023-03-12] MEDS: fentaNYL CITRATE INJ (*CRX) 100 MCG/2 ML VIAL 25 MCG IV PUSH ×6 (15:59→16:10)
[2023-03-12] MEDS: HYDROmorphone HCL INJ (*CRX) 1 MG/ML SYR 0.5 MG IV PUSH ×3 (16:13→16:40)
[2023-03-12] MEDS: SODIUM CHLORIDE 0.9% IV 1,000 ML 125 ML IV CONT (17:16)
[2023-03-12] MEDS: ANASTROZOLE (*CHEMO) 1 MG TABLET PO (17:29)
[2023-03-12] MEDS: CHOLECALCIFEROL 1,000 UNITS TABLET 1000 UNITS PO (17:29)
[2023-03-12] MEDS: LATANOPROST 0.005% OP SOLN 2.5 ML BTL 1 DROP EACH EYE (18:01)
[2023-03-12] MEDS: SENNA/DOCUSATE SODIUM TABLET 2 TAB PO (18:01)
[2023-03-12] MEDS: FAMOTIDINE 20 MG TABLET PO (21:21)
[2023-03-13 04:56] VITALS: BP 114/61; PULSE 50; RESP 16; TEMP 36.2; O2SAT 97
[2023-03-13] MEDS: HYDROcodone/acetaminophen (*CRX) 5-325 MG TABLET 1 TAB PO ×3 (05:08→20:29)
[2023-03-13] MEDS: LEVOTHYROXINE SODIUM 50 MCG TABLET PO (05:09)
[2023-03-13] MEDS: ceFAZolin 2 GM/D5W 50 ML 2 GM/50 ML BAG IVPB ×2 (05:09→13:18)
[2023-03-13] MEDS: BRIMONIDINE TARTRATE 0.2% OP SOLN 5 ML BTL 1 DROP EACH EYE ×3 (05:10→20:31)
[2023-03-13 05:25] VITALS: O2SAT 95
[2023-03-13 06:16] LABS: Basophils Percent Auto 0.2 % (0.2-1.2); Hematocrit 37.7 % (37.0-47.0); Hemoglobin 12.8 g/dL (12.0-15.0); Immature Granulocyte Absolute 0.01 K/mm3 (0.00-0.031); Immature Granulocyte Percent A 0.2 % (0-0.5); Immature Platelet Fraction Pct 6.9 % (0.9-11.2); Lymphocytes Absolute Auto 0.69 K/mm3 (0.9-3.2); Lymphocytes Percent Auto 13.2 % (18.3-44.2); Mean Corpuscular Hemoglobin 31.8 pg (26-34); Mean Corpuscular Volume 93.8 fl (80-100); Mean Platelet Volume 11.5 fl (7.4-10.4); Monocytes Absolute Auto 0.5 K/mm3 (0.1-0.6); Monocytes Percent Auto 10.1 % (2.6-8.5); Neutrophils Percent Auto 76.3 % (45.5-73.1); Platelet Count Result 126 k/mm3 (150-375); Red Blood Count 4.02 M/mm3 (4.2-5.4); Red Cell Distribution Width 12.1 % (11.5-14.5); White Blood Count 5.2 K/mm3 (4.5-10.0)
[2023-03-13 06:28] LABS: Alanine Aminotransferase 10 U/L (6-35); Albumin Level 3.4 g/dL (3.5-5.1); Alkaline Phosphatase 69 U/L (38-126); Anion Gap 8 mmol/L (8-16); Aspartate Amino Transferase 29 U/L (14-36); Bilirubin,Total 0.5 mg/dL (0.2-1.3); Blood Urea Nitrogen 13 mg/dL (7-17); Calcium 8.3 mg/dL (8.4-10.2); Carbon Dioxide 27 mmol/L (22-30); Chloride 101 mmol/L (98-107); Estimated CRCL calculation 63 ml/min; Estimated Glomerular Filt Rate > 60; Glucose 96 mg/dL (65-110); Potassium 3.5 mmol/L (3.4-5.0); Sodium 136 mmol/L (137-145)
[2023-03-13] MEDS: SENNA/DOCUSATE SODIUM TABLET 2 TAB PO (07:46)
[2023-03-13] MEDS: CHOLECALCIFEROL 1,000 UNITS TABLET 1000 UNITS PO (07:46)
[2023-03-13] MEDS: ANASTROZOLE (*CHEMO) 1 MG TABLET PO (07:46)
[2023-03-13] MEDS: FAMOTIDINE 20 MG TABLET PO ×2 (07:46→20:29)
[2023-03-13] MEDS: CARBIDOPA/LEVODOPA 12.5/50 MG TABLET 1 TABLET PO ×3 (07:46→20:29)
[2023-03-13] MEDS: CARBIDOPA/LEVODOPA 25/100 MG TABLET 1 TABLET PO ×3 (07:46→20:29)
[2023-03-13] MEDS: polyethylene glycoL 3350 17 GM POWD.PACK PO (07:47)
[2023-03-13] MEDS: TIMOLOL MALEATE 0.5% OP SOLN 5 ML BOTTLE 1 DROP EACH EYE ×2 (07:47→17:00)
[2023-03-13 08:00] VITALS: O2SAT 95
--- NOTE | 2023-03-13 09:01 | PM.IMPN ---
Progress Note: A&P Assessment and Plan (1) Closed subcapital fracture of neck of right femur: Qualifiers: Encounter type: initial encounter Qualified Code(s): S72.011A - Unspecified intracapsular fracture of right femur, initial encounter for closed fracture Code(s): S72.011A - Unspecified intracapsular fracture of right femur, initial encounter for closed fracture Status: Acute Assessment and Plan: Analgesics available as needed. Dr. Suarez consulted; plans are for surgery on 03/12. 03/13: POD 1 Right femoral neck pining. PT/OT ordered per surgery. Xarelto for DVT prophylaxis per ortho. Pain control per ortho. (2) Fall from ground level: Code(s): W18.30XA - Fall on same level, unspecified, initial encounter Status: Acute Assessment and Plan: Patient had a mechanical fall, her walker got too far ahead of her. 03/13: PT/OT consulted. Rec's appreciated. (3) Parkinson disease: Code(s): G20.A1 - Parkinson's disease without dyskinesia, without mention of fluctuations Status: Acute Assessment and Plan: Restarted carbidopa levodopa (4) Hypothyroidism: Code(s): E03.9 - Hypothyroidism, unspecified Status: Acute Assessment and Plan: Continue levothyroxine and check TSH. 03/13: TSH minimally low at 0.436.; Free thyroxine 1.28; Total T3 0.92. (5) Dyslipidemia: Code(s): E78.5 - Hyperlipidemia, unspecified Status: Acute Assessment and Plan: On Livalo. (6) Glaucoma: Code(s): H40.9 - Unspecified glaucoma Status: Acute Assessment and Plan: Continue timolol, latanoprost, and brimonidine. Plan Feeding:Heart Healthy diet Analgesia:[place] Thromboembolic prophylaxis: Xarelto Ulcer prophylaxis: H2 rafy Glycemic control: n/a Bowel regimen: senna and miralax with prn suppository. Lines: PIV Antibiotics: Cefazolin per SCIP Disposition: Accepted at [facility] [facility] and pending [facility] in [place]. Family would prefer [place] as last resort as it is further from family. Daughter can assist with transport at discharge but would need it to be in the afternoon due to her work schedule. Subjective Date/time seen: 03/13/23 09:01 Interval history: HPI obtained from the chart, This is a pleasant 72-year-old female with Parkinson's disease, hypothyroidism, glaucoma, and breast cancer who presented to the emergency department via private vehicle from [facility] for evaluation of right hip pain after a fall. She was walking down the [facility] when she lost a hold of her walker and fell down onto the ground landing on her right side. She was eventually able to get off the floor with multiple assist is but she had significant pain bearing weight on the right leg due to pain in the hip. She denies head trauma. There was no loss of consciousness or prodromal symptoms leading up to the fall. At the time my evaluation she has only minimal discomfort however has pretty significant pain when trying to move that right leg. Vital signs have been stable since arrival. CMP and CBC were pretty unremarkable. Hip and pelvis x-ray shows mildly displaced and angulated right subcapital femoral neck fracture and she is being admitted in this setting for pain control and orthopedic consultation. 03/11:? Met with patient and her son this morning.? Patient reports her neck has been hurting but it is better after pain medication this morning.? CT head and Cervical Spine obtained in ER and interpreted as unremarkable by Radiology.? Dr. Suarez is planning to operate tomorrow.? Patient reports doing well this morning.? 03/12:? Patient to go to the operating room at 2:30 p.m. for hip repair.? She denies any pain or shortness of breath now.? Patient's only complaint is that she is feeling constipated and she wants prune juice. 03/13: Patient is postop day 1 from right femoral neck pining. She is seen up in the chair a
[2023-03-13 10:26] VITALS: BP 99/57; PULSE 52; RESP 16; TEMP 35.8; O2SAT 99
--- NOTE | 2023-03-13 12:19 | PM.PNORT ---
Progress Note: A&P Assessment and Plan (1) Closed subcapital fracture of neck of right femur: Qualifiers: Encounter type: initial encounter Qualified Code(s): S72.011A - Unspecified intracapsular fracture of right femur, initial encounter for closed fracture Code(s): S72.011A - Unspecified intracapsular fracture of right femur, initial encounter for closed fracture Status: Acute Plan 72-year-old female postop day one right hip pinning in-situ for impacted subcapital femoral neck fracture. Uneventful overnight. Initiate therapy. Will need placement. Will follow on the hospital. Discharge instructions placed in chart. Subjective Subjective Date/Time Seen: 03/13/23 12:19 Post Op day: 1 Principal diagnosis: Status post pinning in-situ right femoral neck fracture Interval history: 72-year-old female postop day one pinning right hip fracture. Comfortable. Mildly confused but easily reoriented. Exam Const: General: cooperative and no acute distress GI: Inspection: non-distended Neuro: Other: Right hip incision dry. Minimal swelling. Grossly motor and sensory function intact right lower extremity but exam limited secondary to discomfort. Calves negative. Radiology Reports: Comments: EXAMINATION: XR surgery orthopedic DATE: 03/12/2023 14:30 INTERNATIONAL RECRUITER INDICATION: RT HIP PINNING . TECHNIQUE: 2 fluoroscopic images of the right hip were obtained during right hip pinning performed by the surgeon. I was not present in the operating room. Fluoroscopy exposure time was 76.3 seconds. Air Kerma 13.7 mGy. DAP 0.239 00 mGym2. COMPARISON: X-ray right hip 03/10/2023 FINDINGS: 3 cannulated screws fix the subcapital right proximal femoral fracture into near-anatomic alignment. IMPRESSION: Fluoroscopic documentation of right hip pinning. Please refer to the operative note for complete procedural details . Reviewed, dictated and finalized at location K. RNATIONAL RECRUITER Objective Data Vital Signs Vital Signs: Vital Signs - 24 hr 03/12/23 13:28 03/12/23 15:25 03/12/23 15:30 Temperature 98.8 F 97.5 F L Pulse Rate 67 78 58 L Respiratory Rate 20 17 14 Blood Pressure 115/92 H 152/98 H 148/88 H Pulse Oximetry 94 99 99 Oxygen Delivery Room Air Simple Face Mask Simple Face Mask Oxygen Flow Rate 8 8 03/12/23 15:35 03/12/23 15:45 03/12/23 16:00 Temperature Pulse Rate 60 55 L Respiratory Rate 12 20 Blood Pressure 149/82 H 149/82 H Pulse Oximetry 96 96 95 Oxygen Delivery Room Air Room Air Room Air Oxygen Flow Rate 03/12/23 16:15 03/12/23 16:30 03/12/23 16:38 Temperature Pulse Rate 55 L 60 54 L Respiratory Rate 20 22 H 16 Blood Pressure 132/73 129/85 140/81 Pulse Oximetry 95 100 97 Oxygen Delivery Room Air Nasal Cannula Nasal Cannula Oxygen Flow Rate 2 2 03/12/23 16:23 03/12/23 16:50 03/12/23 17:05 Temperature 98 F 97.6 F Pulse Rate 76 78 Respiratory Rate 14 16 Blood Pressure 145/85 H 140/82 Pulse Oximetry 97 95 96 Oxygen Delivery Nasal Cannula Oxygen Flow Rate 2 03/12/23 17:35 03/12/23 18:35 03/12/23 19:53 Temperature 97.8 F 98 F 97.4 F L Pulse Rate 74 74 57 L Respiratory Rate 16 18 16 Blood Pressure 137/76 139/89 129/77 Pulse Oximetry 96 97 97 Oxygen Delivery Oxygen Flow Rate 03/13/23 05:25 03/13/23 04:56 03/13/23 09:21 Temperature 97.2 F L Pulse Rate 50 L Respiratory Rate 16 Blood Pressure 114/61 Pulse Oximetry 95 97 Oxygen Delivery Room Air Room Air Oxygen Flow Rate 03/13/23 08:00 03/13/23 10:26 Temperature 96.5 F L Pulse Rate 52 L Respiratory Rate 16 Blood Pressure 99/57 L Pulse Oximetry 95 99 Oxygen Delivery Room Air Oxygen Flow Rate Intake/Output Intake/Output: Intake & Output 03/10/23 03/11/23 03/12/23 03/13/23 23:59 23:59 23:59 23:59 Intake Total 800 / 800 1260 / 1260 360 / 360
[2023-03-13 14:09] VITALS: BP 98/54; PULSE 51; RESP 16; TEMP 35.9; O2SAT 97
[2023-03-13] MEDS: ONDANSETRON INJ 4 MG/2 ML VIAL IV PUSH (14:49)
[2023-03-13] MEDS: LATANOPROST 0.005% OP SOLN 2.5 ML BTL 1 DROP EACH EYE (17:00)
[2023-03-13] MEDS: RIVAROXABAN 10 MG TABLET PO (20:30)
[2023-03-13 20:40] VITALS: BP 129/57; PULSE 54; RESP 16; TEMP 36.2; O2SAT 97
[2023-03-14] MEDS: HYDROcodone/acetaminophen (*CRX) 5-325 MG TABLET 1 TAB PO ×2 (03:11→20:08)
[2023-03-14 04:28] VITALS: BP 128/64; PULSE 54; RESP 16; TEMP 36.6; O2SAT 95
[2023-03-14] MEDS: LEVOTHYROXINE SODIUM 50 MCG TABLET PO (05:21)
[2023-03-14] MEDS: BRIMONIDINE TARTRATE 0.2% OP SOLN 5 ML BTL 1 DROP EACH EYE ×3 (05:21→20:09)
[2023-03-14 05:35] LABS: Appearance Urine Clear (Clear); Bilirubin Urine Negative (Negative); Blood Urine Negative (Negative); Color Urine Yellow (Yellow); Glucose Urine UA Negative (Negative); Ketones Urine Negative (Negative); Leukocyte Esterase Ur Negative LEU/UL (Negative); Nitrate Urine Negative (Negative); Protein Urine Negative (Negative); Specific Grav Ur 1.007 (1.001-1.035); Urobilinogen Urine 0.2 mg/dL (<2.0)
[2023-03-14 05:40] LABS: Add Urine Microscopic? NO
[2023-03-14 06:34] LABS: Basophils Percent Auto 0.2 % (0.2-1.2); Hemoglobin 12.6 g/dL (12.0-15.0); Immature Granulocyte Absolute 0.01 K/mm3 (0.00-0.031); Immature Granulocyte Percent A 0.2 % (0-0.5); Immature Platelet Fraction Pct 6.6 % (0.9-11.2); Lymphocytes Absolute Auto 1.06 K/mm3 (0.9-3.2); Lymphocytes Percent Auto 25.2 % (18.3-44.2); Mean Corpuscular HGB Conc 33.2 g/dl (32-36); Mean Corpuscular Hemoglobin 31.8 pg (26-34); Monocytes Absolute Auto 0.4 K/mm3 (0.1-0.6); Neutrophils Absolute Auto 2.8 K/mm3 (1.3-6.7); Neutrophils Percent Auto 65.4 % (45.5-73.1); Platelet Count Result 128 k/mm3 (150-375); Red Blood Count 3.96 M/mm3 (4.2-5.4); Red Cell Distribution Width 12.2 % (11.5-14.5); White Blood Count 4.2 K/mm3 (4.5-10.0)
[2023-03-14 06:41] LABS: Alanine Aminotransferase 11 U/L (6-35); Albumin Level 3.3 g/dL (3.5-5.1); Alkaline Phosphatase 77 U/L (38-126); Anion Gap 9 mmol/L (8-16); Aspartate Amino Transferase 28 U/L (14-36); Bilirubin,Total 0.4 mg/dL (0.2-1.3); Blood Urea Nitrogen 13 mg/dL (7-17); Calcium 8.1 mg/dL (8.4-10.2); Carbon Dioxide 26 mmol/L (22-30); Chloride 100 mmol/L (98-107); Estimated CRCL calculation 48 ml/min; Estimated Glomerular Filt Rate > 60; Glucose 89 mg/dL (65-110); Potassium 3.1 mmol/L (3.4-5.0); Sodium 135 mmol/L (137-145)
--- NOTE | 2023-03-14 08:45 | PM.DS ---
DS: Admitting Diagnosis Discharge Date 03/14 Admitting Diagnosis fall DS: Discharge Diagnosis Discharge Diagnosis (1) Closed subcapital fracture of neck of right femur: Qualifiers: Encounter type: initial encounter Qualified Code(s): S72.011A - Unspecified intracapsular fracture of right femur, initial encounter for closed fracture Code(s): S72.011A - Unspecified intracapsular fracture of right femur, initial encounter for closed fracture Status: Acute Assessment and Plan: Analgesics available as needed. Dr. Suarez consulted; plans are for surgery on 03/12. 03/13: POD 1 Right femoral neck pining. PT/OT ordered per surgery. Xarelto for DVT prophylaxis per ortho. Pain control per ortho. (2) Fall from ground level: Code(s): W18.30XA - Fall on same level, unspecified, initial encounter Status: Acute Assessment and Plan: Patient had a mechanical fall, her walker got too far ahead of her. 03/13: PT/OT consulted. Rec's appreciated. (3) Parkinson disease: Code(s): G20.A1 - Parkinson's disease without dyskinesia, without mention of fluctuations Status: Acute Assessment and Plan: Restarted carbidopa levodopa (4) Hypothyroidism: Code(s): E03.9 - Hypothyroidism, unspecified Status: Acute Assessment and Plan: Continue levothyroxine and check TSH. 03/13: TSH minimally low at 0.436.; Free thyroxine 1.28; Total T3 0.92. (5) Dyslipidemia: Code(s): E78.5 - Hyperlipidemia, unspecified Status: Acute Assessment and Plan: On Livalo. (6) Glaucoma: Code(s): H40.9 - Unspecified glaucoma Status: Acute Assessment and Plan: Continue timolol, latanoprost, and brimonidine. Plan Feeding:Heart Healthy diet Analgesia:[place] Thromboembolic prophylaxis: Xarelto Ulcer prophylaxis: H2 rafy Glycemic control: n/a Bowel regimen: senna and miralax with prn suppository. Lines: PIV Antibiotics: Cefazolin per SCIP Disposition: Accepted at [facility] and pending [facility] in [place]. Family would prefer [place] as last resort as it is further from family. Daughter can assist with transport at discharge but would need it to be in the afternoon due to her work schedule. DS: Summary Hospital Course Hospital Course: This is a pleasant 72-year-old female with Parkinson's disease, hypothyroidism, glaucoma, and breast cancer who presented to the emergency department via private vehicle from [facility] for evaluation of right hip pain after a fall. She was walking down the [facility] when she lost a hold of her walker and fell down onto the ground landing on her right side. She was eventually able to get off the floor with multiple assist is but she had significant pain bearing weight on the right leg due to pain in the hip. She denies head trauma. There was no loss of consciousness or prodromal symptoms leading up to the fall. At the time my evaluation she has only minimal discomfort however has pretty significant pain when trying to move that right leg. Vital signs have been stable since arrival. CMP and CBC were pretty unremarkable. Hip and pelvis x-ray shows mildly displaced and angulated right subcapital femoral neck fracture and she is being admitted in this setting for pain control and orthopedic consultation. 03/11:? Met with patient and her son this morning.? Patient reports her neck has been hurting but it is better after pain medication this morning.? CT head and Cervical Spine obtained in ER and interpreted as unremarkable by Radiology.? Dr. Suarez is planning to operate tomorrow.? Patient reports doing well this morning.? 03/12:? Patient to go to the operating room at 2:30 p.m. for hip repair.? She denies any pain or shortness of breath now.? Patient's only complaint is that she is feeling constipated and she wants prune juice. 03/13:? Patient is postop day 1 from right femoral neck pining.?
[2023-03-14] MEDS: CARBIDOPA/LEVODOPA 12.5/50 MG TABLET 1 TABLET PO ×3 (09:19→20:12)
[2023-03-14] MEDS: polyethylene glycoL 3350 17 GM POWD.PACK PO (09:20)
[2023-03-14] MEDS: FAMOTIDINE 20 MG TABLET PO ×2 (09:20→20:08)
[2023-03-14] MEDS: ANASTROZOLE (*CHEMO) 1 MG TABLET PO (09:21)
[2023-03-14] MEDS: SENNA/DOCUSATE SODIUM TABLET 2 TAB PO ×2 (09:21→18:37)
[2023-03-14] MEDS: CHOLECALCIFEROL 1,000 UNITS TABLET 1000 UNITS PO (09:21)
[2023-03-14] MEDS: TIMOLOL MALEATE 0.5% OP SOLN 5 ML BOTTLE 1 DROP EACH EYE ×2 (09:24→18:38)
[2023-03-14] MEDS: HYDROcodone/acetaminophen (*CRX) 7.5-325 MG TABLET 1 TAB PO (09:24)
[2023-03-14] MEDS: CARBIDOPA/LEVODOPA 25/100 MG TABLET 1 TABLET PO ×3 (09:24→20:08)
--- NOTE | 2023-03-14 12:26 | PM.PNORT ---
Progress Note: A&P Assessment and Plan (1) Closed subcapital fracture of neck of right femur: Qualifiers: Encounter type: initial encounter Qualified Code(s): S72.011A - Unspecified intracapsular fracture of right femur, initial encounter for closed fracture Code(s): S72.011A - Unspecified intracapsular fracture of right femur, initial encounter for closed fracture Status: Acute Plan 72-year-old female postop day two status post pinning right femoral neck fracture. Overall doing well. Continue therapy. Awaiting placement. Instructions placed in discharge section. Subjective Subjective Date/Time Seen: 03/14/23 12:26 Post Op day: 2 (Status post right hip pinning) Principal diagnosis: Right subcapital femoral neck fracture Interval history: 72-year-old female who is postop day two status post pinning right femoral neck fracture. No issues overnight. Comfortable. Exam Const: General: cooperative and no acute distress GI: Inspection: non-distended Extrem: Other: Right hip wound dry. Minimal swelling. Minimal bruising. Neurovascular status intact right lower extremity. Calves negative. Objective Data Vital Signs Vital Signs: Vital Signs - 24 hr 03/13/23 14:09 03/13/23 20:40 03/13/23 20:00 Temperature 96.6 F L 97.1 F L Pulse Rate 51 L 54 L Respiratory Rate 16 16 Blood Pressure 98/54 L 129/57 L Pulse Oximetry 97 97 Oxygen Delivery Room Air 03/14/23 04:28 Temperature 97.8 F Pulse Rate 54 L Respiratory Rate 16 Blood Pressure 128/64 Pulse Oximetry 95 Oxygen Delivery Intake/Output Intake/Output: Intake & Output 03/11/23 03/12/23 03/13/23 03/14/23 23:59 23:59 23:59 23:59 Intake Total 800 / 800 1260 / 1260 2089 480 / 480 Output Total 1999 750 / 750 250 / 250 Balance -1200 / -1200 -830 / -830 1340 / 1340 230 / 230 Meds/Results Medications: Active Medications Generic Name Dose Route Start Last Admin Trade Name Freq PRN Reason Stop Dose Admin Acetaminophen 650 mg 03/12/23 16:41 Acetaminophen 325 Mg Tablet PO Q6H PRN Mild Pain (1-3) or Fever Hydrocodone Bitart/Acetaminophen 1 tab 03/10/23 21:05 03/14/23 03:11 Hydrocodone/Acetaminophen (*Crx) 5-325 Mg Tablet PO 1 tab Q4H PRN Administration Moderate Pain (Scale Score 5-6) Hydrocodone Bitart/Acetaminophen 1 tab 03/12/23 16:41 03/14/23 09:24 Hydrocodone/Acetaminophen (*Crx) 7.5-325 Mg Tablet PO 1 tab Q3H PRN Administration Pain Rated 7-10 Hydrocodone Bitart/Acetaminophen 1 tab 03/12/23 16:41 Hydrocodone/Acetaminophen (*Crx) 5-325 Mg Tablet PO Q3H PRN Pain Rated 4-6 Anastrozole 1 mg 03/11/23 09:00 03/14/23 09:21 Anastrozole (*Chemo) 1 Mg Tablet PO 04/10/23 08:59 1 mg DAILY STEFANO Administration Bisacodyl 10 mg 03/13/23 10:53 Bisacodyl 10 Mg Suppository RECTAL QAM PRN Constipation Brimonidine Tartrate 1 drop 03/10/23 22:00 03/14/23 05:21 Brimonidine Tartrate 0.2% Op Soln 5 Ml Btl EACH EYE 1 drop Q8HR STEFANO Administration Carbidopa/Levodopa 1 tablet 03/11/23 09:55 03/14/23 09:24 Carbidopa/Levodopa 25/100 Mg Tablet PO 1 tablet 0800,1500,1999 STEFANO Administration Carbidopa/Levodopa 1 tablet 03/11/23 09:55 03/14/23 09:19 Carbidopa/Levodopa 12.5/50 Mg Tablet PO 1 tablet 0800,1500,2000 STEFANO Administration Famotidine 20 mg 03/12/23 21:00 03/14/23 09:20 Famotidine 20 Mg Tablet PO 20 mg Q12HR STEFANO Administration Latanoprost 1 drop 03/11/23 18:00 03/13/23 17:00 Latanoprost 0.005% Op Soln 2.5 Ml Btl EACH EYE 1 drop QPM STEFANO Administration Levothyroxine Sodium 50 mcg 03/11/23 06:30 03/14/23 05:21 Levothyroxine Sodium 50 Mcg Tablet PO 50 mcg DAILY@0630 STEFANO Administration Melatonin 5 mg 03/12/23 22:29 Melatonin 5 Mg Tablet PO HS PRN Sleep Miscellaneous Information 1 each 03/11/23 00:01 03/14/23 03:08 Nonformulary (Pit
[2023-03-14 13:59] VITALS: BP 97/65; PULSE 63; RESP 18; TEMP 36.4; O2SAT 98
[2023-03-14 15:34] LABS: Influenza A QL RT-PCR Negative (Negative); Influenza B QL RT-PCR Negative (Negative); RSV RNA, RT-PCR Negative (Negative); SARS-CoV-2 RNA PCR Positive (Negative)
[2023-03-14] MEDS: LATANOPROST 0.005% OP SOLN 2.5 ML BTL 1 DROP EACH EYE (18:38)
[2023-03-14] MEDS: RIVAROXABAN 10 MG TABLET PO (18:38)
[2023-03-14] MEDS: MELATONIN 5 MG TABLET PO (20:08)
[2023-03-14 22:00] VITALS: BP 113/67; PULSE 55; RESP 14; TEMP 36.4; O2SAT 92
--- NOTE | 2023-03-15 01:24 | PC.NURSE ---
pt refusing ice gel packs to right hip, stating the ice makes the pain worse
[2023-03-15] MEDS: HYDROcodone/acetaminophen (*CRX) 5-325 MG TABLET 1 TAB PO (05:46)
[2023-03-15] MEDS: LEVOTHYROXINE SODIUM 50 MCG TABLET PO (05:46)
[2023-03-15] MEDS: BRIMONIDINE TARTRATE 0.2% OP SOLN 5 ML BTL 1 DROP EACH EYE ×3 (05:47→21:05)
[2023-03-15 06:00] VITALS: BP 137/71; PULSE 55; RESP 18; TEMP 36.6; O2SAT 95
[2023-03-15 06:40] LABS: Basophils Percent Auto 0.2 % (0.2-1.2); Eosinophils Percent Auto 0.2 % (0-4.4); Hematocrit 37.2 % (37.0-47.0); Hemoglobin 12.7 g/dL (12.0-15.0); Immature Granulocyte Absolute 0.01 K/mm3 (0.00-0.031); Immature Granulocyte Percent A 0.2 % (0-0.5); Immature Platelet Fraction Pct 5.4 % (0.9-11.2); Lymphocytes Absolute Auto 1.03 K/mm3 (0.9-3.2); Lymphocytes Percent Auto 23.9 % (18.3-44.2); Mean Corpuscular HGB Conc 34.1 g/dl (32-36); Mean Corpuscular Hemoglobin 31.8 pg (26-34); Mean Corpuscular Volume 93.2 fl (80-100); Mean Platelet Volume 10.7 fl (7.4-10.4); Monocytes Absolute Auto 0.5 K/mm3 (0.1-0.6); Monocytes Percent Auto 10.7 % (2.6-8.5); Neutrophils Absolute Auto 2.8 K/mm3 (1.3-6.7); Neutrophils Percent Auto 64.8 % (45.5-73.1); Platelet Count Result 145 k/mm3 (150-375); Red Blood Count 3.99 M/mm3 (4.2-5.4); Red Cell Distribution Width 12.2 % (11.5-14.5); White Blood Count 4.3 K/mm3 (4.5-10.0)
[2023-03-15 06:51] LABS: Alanine Aminotransferase 10 U/L (6-35); Albumin Level 3.4 g/dL (3.5-5.1); Alkaline Phosphatase 82 U/L (38-126); Anion Gap 11 mmol/L (8-16); Aspartate Amino Transferase 23 U/L (14-36); Bilirubin,Total 0.5 mg/dL (0.2-1.3); Blood Urea Nitrogen 10 mg/dL (7-17); Calcium 8.3 mg/dL (8.4-10.2); Carbon Dioxide 24 mmol/L (22-30); Chloride 100 mmol/L (98-107); Estimated CRCL calculation 55 ml/min; Estimated Glomerular Filt Rate > 60; Glucose 103 mg/dL (65-110); Sodium 135 mmol/L (137-145)
--- NOTE | 2023-03-15 08:03 | PM.IMPN ---
Progress Note: A&P Assessment and Plan (1) Closed subcapital fracture of neck of right femur: Qualifiers: Encounter type: initial encounter Qualified Code(s): S72.011A - Unspecified intracapsular fracture of right femur, initial encounter for closed fracture Code(s): S72.011A - Unspecified intracapsular fracture of right femur, initial encounter for closed fracture Status: Acute Assessment and Plan: Analgesics available as needed. Dr. Suarez consulted; plans are for surgery on 03/12. 03/13: POD 1 Right femoral neck pining. PT/OT ordered per surgery. Xarelto for DVT prophylaxis per ortho. Pain control per ortho. (2) Fall from ground level: Code(s): W18.30XA - Fall on same level, unspecified, initial encounter Status: Acute Assessment and Plan: Patient had a mechanical fall, her walker got too far ahead of her. 03/13: PT/OT consulted. Rec's appreciated. (3) Parkinson disease: Code(s): G20.A1 - Parkinson's disease without dyskinesia, without mention of fluctuations Status: Acute Assessment and Plan: Restarted carbidopa levodopa (4) Hypothyroidism: Code(s): E03.9 - Hypothyroidism, unspecified Status: Acute Assessment and Plan: Continue levothyroxine and check TSH. 03/13: TSH minimally low at 0.436.; Free thyroxine 1.28; Total T3 0.92. (5) Dyslipidemia: Code(s): E78.5 - Hyperlipidemia, unspecified Status: Acute Assessment and Plan: On Livalo. (6) Glaucoma: Code(s): H40.9 - Unspecified glaucoma Status: Acute Assessment and Plan: Continue timolol, latanoprost, and brimonidine. Plan Feeding:Heart Healthy diet Analgesia:[place] Thromboembolic prophylaxis: Xarelto Ulcer prophylaxis: H2 rafy Glycemic control: n/a Bowel regimen: senna and miralax with prn suppository. Lines: PIV Antibiotics: Cefazolin per SCIP Disposition: Accepted at [facility]. COVID positive but asymptomatic. Awaiting bed. Subjective Date/time seen: 03/15/23 08:04 Interval history: HPI obtained from the chart, This is a pleasant 72-year-old female with Parkinson's disease, hypothyroidism, glaucoma, and breast cancer who presented to the emergency department via private vehicle from [facility] for evaluation of right hip pain after a fall. She was walking down the [facility] assisted living facility when she lost a hold of her walker and fell down onto the ground landing on her right side. She was eventually able to get off the floor with multiple assist is but she had significant pain bearing weight on the right leg due to pain in the hip. She denies head trauma. There was no loss of consciousness or prodromal symptoms leading up to the fall. At the time my evaluation she has only minimal discomfort however has pretty significant pain when trying to move that right leg. Vital signs have been stable since arrival. CMP and CBC were pretty unremarkable. Hip and pelvis x-ray shows mildly displaced and angulated right subcapital femoral neck fracture and she is being admitted in this setting for pain control and orthopedic consultation. 03/11:? Met with patient and her son this morning.? Patient reports her neck has been hurting but it is better after pain medication this morning.? CT head and Cervical Spine obtained in ER and interpreted as unremarkable by Radiology.? Dr. Suarez is planning to operate tomorrow.? Patient reports doing well this morning.? 03/12:? Patient to go to the operating room at 2:30 p.m. for hip repair.? She denies any pain or shortness of breath now.? Patient's only complaint is that she is feeling constipated and she wants prune juice. 03/13: Patient is postop day 1 from right femoral neck pining. She is seen up in the chair and is doing well. Her biggest complaint today is that she is fatigued. She denies pain at this time. Surgical incision is covered with surgical dressing is clean dry and in
[2023-03-15] MEDS: SENNA/DOCUSATE SODIUM TABLET 2 TAB PO ×2 (09:09→16:35)
[2023-03-15] MEDS: CARBIDOPA/LEVODOPA 25/100 MG TABLET 1 TABLET PO ×3 (09:09→21:05)
[2023-03-15 09:10] VITALS: O2SAT 97
[2023-03-15] MEDS: polyethylene glycoL 3350 17 GM POWD.PACK PO (09:10)
[2023-03-15] MEDS: FAMOTIDINE 20 MG TABLET PO ×2 (09:10→21:05)
[2023-03-15] MEDS: CARBIDOPA/LEVODOPA 12.5/50 MG TABLET 1 TABLET PO ×3 (09:10→21:05)
[2023-03-15] MEDS: CHOLECALCIFEROL 1,000 UNITS TABLET 1000 UNITS PO (09:10)
[2023-03-15] MEDS: ANASTROZOLE (*CHEMO) 1 MG TABLET PO (09:10)
[2023-03-15] MEDS: POTASSIUM CHLORIDE 20 MEQ ER TABLET 40 MEQ PO ×2 (09:11→11:54)
[2023-03-15] MEDS: TIMOLOL MALEATE 0.5% OP SOLN 5 ML BOTTLE 1 DROP EACH EYE ×2 (09:13→16:36)
--- NOTE | 2023-03-15 10:47 | PM.PNORT ---
Progress Note: A&P Assessment and Plan (1) Closed subcapital fracture of neck of right femur: Qualifiers: Encounter type: initial encounter Qualified Code(s): S72.011A - Unspecified intracapsular fracture of right femur, initial encounter for closed fracture Code(s): S72.011A - Unspecified intracapsular fracture of right femur, initial encounter for closed fracture Status: Acute Plan Postop day three pinning right hip fracture. No change in plans. Will switch her to a scheduled Tylenol pain medicine regimen. Subjective Subjective Date/Time Seen: 03/15/23 10:47 Post Op day: 3 Principal diagnosis: Right subcapital femoral neck fracture Interval history: 72-year-old female postop day three status post pinning right subcapital femoral neck fracture. Making progress as expected. Transfer delayed due to COVID positive swab. Patient reports not feeling any different. Asymptomatic with respect to COVID. Complains mainly of pain in the right hip area. Exam Const: General: cooperative and no acute distress Resp: Effort & Inspection: normal respiratory effort GI: Inspection: non-distended Extrem: Other: Right hip wound clean and dry. No drainage. Grossly motor and sensory function intact right lower extremity. Unchanged exam. Objective Data Vital Signs Vital Signs: Vital Signs - 24 hr 03/14/23 13:59 03/14/23 20:00 03/14/23 22:00 Temperature 97.6 F 97.6 F Pulse Rate 63 55 L Respiratory Rate 18 14 Blood Pressure 97/65 L 113/67 Pulse Oximetry 98 92 Oxygen Delivery Room Air 03/15/23 06:00 Temperature 97.8 F Pulse Rate 55 L Respiratory Rate 18 Blood Pressure 137/71 Pulse Oximetry 95 Oxygen Delivery Intake/Output Intake/Output: Intake & Output 03/12/23 03/13/23 03/14/23 03/15/23 23:59 23:59 23:59 23:59 Intake Total 1260 / 1260 2089 1800 / 1800 1160 / 1160 Output Total 2089 750 / 750 250 / 250 Balance -830 / -830 1340 / 1340 1550 / 1550 1160 / 1160 Meds/Results Medications: Active Medications Generic Name Dose Route Start Last Admin Trade Name Freq PRN Reason Stop Dose Admin Acetaminophen 650 mg 03/12/23 16:41 Acetaminophen 325 Mg Tablet PO Q6H PRN Mild Pain (1-3) or Fever Hydrocodone Bitart/Acetaminophen 1 tab 03/10/23 21:05 03/15/23 05:46 Hydrocodone/Acetaminophen (*Crx) 5-325 Mg Tablet PO 1 tab Q4H PRN Administration Moderate Pain (Scale Score 5-6) Hydrocodone Bitart/Acetaminophen 1 tab 03/12/23 16:41 03/14/23 09:24 Hydrocodone/Acetaminophen (*Crx) 7.5-325 Mg Tablet PO 1 tab Q3H PRN Administration Pain Rated 7-10 Hydrocodone Bitart/Acetaminophen 1 tab 03/12/23 16:41 Hydrocodone/Acetaminophen (*Crx) 5-325 Mg Tablet PO Q3H PRN Pain Rated 4-6 Anastrozole 1 mg 03/11/23 09:00 03/15/23 09:10 Anastrozole (*Chemo) 1 Mg Tablet PO 04/10/23 08:59 1 mg DAILY STEFANO Administration Bisacodyl 10 mg 03/13/23 10:53 Bisacodyl 10 Mg Suppository RECTAL QAM PRN Constipation Brimonidine Tartrate 1 drop 03/10/23 22:00 03/15/23 05:47 Brimonidine Tartrate 0.2% Op Soln 5 Ml Btl EACH EYE 1 drop Q8HR STEFANO Administration Carbidopa/Levodopa 1 tablet 03/11/23 09:55 03/15/23 09:09 Carbidopa/Levodopa 25/100 Mg Tablet PO 1 tablet 0800,1500,2000 STEFANO Administration Carbidopa/Levodopa 1 tablet 03/11/23 09:55 03/15/23 09:10 Carbidopa/Levodopa 12.5/50 Mg Tablet PO 1 tablet 0800,1500,2000 STEFANO Administration Famotidine 20 mg 03/12/23 21:00 03/15/23 09:10 Famotidine 20 Mg Tablet PO 20 mg Q12HR STEFANO Administration Latanoprost 1 drop 03/11/23 18:00 03/14/23 18:38 Latanoprost 0.005% Op Soln 2.5 Ml Btl EACH EYE 1 drop QPM STEFANO Administration Levothyroxine Sodium 50 mcg 03/11/23 06:30 03/15/23 05:46 Levothyroxine Sodium 50 Mcg Tablet PO 50 mcg DAILY@0630 STEFANO Administration Melatonin 5 mg 03/12/23 22:29 03/14/23 20:08
[2023-03-15] MEDS: ACETAMINOPHEN 500 MG TABLET 1000 MG PO ×2 (11:53→21:05)
[2023-03-15 14:00] VITALS: BP 121/70; PULSE 108; RESP 18; TEMP 36; O2SAT 98
[2023-03-15] MEDS: RIVAROXABAN 10 MG TABLET PO (16:36)
[2023-03-15] MEDS: LATANOPROST 0.005% OP SOLN 2.5 ML BTL 1 DROP EACH EYE (19:05)
[2023-03-15] MEDS: MELATONIN 5 MG TABLET PO (21:08)
[2023-03-15 22:00] VITALS: BP 160/83; PULSE 61; RESP 18; TEMP 36.1; O2SAT 96
[2023-03-16 06:00] VITALS: BP 173/85; PULSE 55; RESP 18; TEMP 36.3; O2SAT 95
[2023-03-16] MEDS: ACETAMINOPHEN 500 MG TABLET 1000 MG PO ×3 (06:23→21:04)
[2023-03-16] MEDS: LEVOTHYROXINE SODIUM 50 MCG TABLET PO (06:23)
[2023-03-16] MEDS: BRIMONIDINE TARTRATE 0.2% OP SOLN 5 ML BTL 1 DROP EACH EYE ×3 (06:23→21:04)
--- NOTE | 2023-03-16 06:59 | PM.IMPN ---
Progress Note: A&P Assessment and Plan (1) Closed subcapital fracture of neck of right femur: Qualifiers: Encounter type: initial encounter Qualified Code(s): S72.011A - Unspecified intracapsular fracture of right femur, initial encounter for closed fracture Code(s): S72.011A - Unspecified intracapsular fracture of right femur, initial encounter for closed fracture Status: Acute Assessment and Plan: Analgesics available as needed. Dr. Suarez consulted; plans are for surgery on 03/12. 03/13: POD 1 Right femoral neck pining. PT/OT ordered per surgery. Xarelto for DVT prophylaxis per ortho. Pain control per ortho. (2) Fall from ground level: Code(s): W18.30XA - Fall on same level, unspecified, initial encounter Status: Acute Assessment and Plan: Patient had a mechanical fall, her walker got too far ahead of her. 03/13: PT/OT consulted. Rec's appreciated. (3) Parkinson disease: Code(s): G20.A1 - Parkinson's disease without dyskinesia, without mention of fluctuations Status: Acute Assessment and Plan: Restarted carbidopa levodopa (4) Hypothyroidism: Code(s): E03.9 - Hypothyroidism, unspecified Status: Acute Assessment and Plan: Continue levothyroxine and check TSH. 03/13: TSH minimally low at 0.436.; Free thyroxine 1.28; Total T3 0.92. (5) Dyslipidemia: Code(s): E78.5 - Hyperlipidemia, unspecified Status: Acute Assessment and Plan: On Livalo. (6) Glaucoma: Code(s): H40.9 - Unspecified glaucoma Status: Acute Assessment and Plan: Continue timolol, latanoprost, and brimonidine. Plan Feeding:Heart Healthy diet Analgesia:[place] Thromboembolic prophylaxis: Xarelto Ulcer prophylaxis: H2 rafy Glycemic control: n/a Bowel regimen: senna and miralax with prn suppository. Lines: PIV Antibiotics: Cefazolin per SCIP Disposition: Accepted at [place]. COVID positive but asymptomatic. Awaiting bed. Subjective Date/time seen: 03/16/23 06:59 Interval history: HPI obtained from the chart, This is a pleasant 72-year-old female with Parkinson's disease, hypothyroidism, glaucoma, and breast cancer who presented to the emergency department via private vehicle from [facility] for evaluation of right hip pain after a fall. She was walking down the [facility] when she lost a hold of her walker and fell down onto the ground landing on her right side. She was eventually able to get off the floor with multiple assist is but she had significant pain bearing weight on the right leg due to pain in the hip. She denies head trauma. There was no loss of consciousness or prodromal symptoms leading up to the fall. At the time my evaluation she has only minimal discomfort however has pretty significant pain when trying to move that right leg. Vital signs have been stable since arrival. CMP and CBC were pretty unremarkable. Hip and pelvis x-ray shows mildly displaced and angulated right subcapital femoral neck fracture and she is being admitted in this setting for pain control and orthopedic consultation. 03/11:? Met with patient and her son this morning.? Patient reports her neck has been hurting but it is better after pain medication this morning.? CT head and Cervical Spine obtained in ER and interpreted as unremarkable by Radiology.? Dr. Suarez is planning to operate tomorrow.? Patient reports doing well this morning.? 03/12:? Patient to go to the operating room at 2:30 p.m. for hip repair.? She denies any pain or shortness of breath now.? Patient's only complaint is that she is feeling constipated and she wants prune juice. 03/13: Patient is postop day 1 from right femoral neck pining. She is seen up in the chair and is doing well. Her biggest complaint today is that she is fatigued. She denies pain at this time. Surgical incision is covered with surgical dressing is clean dry and in
[2023-03-16 07:01] VITALS: BP 134/75
--- NOTE | 2023-03-16 07:01 | PC.NURSE ---
bp rechecked 134/75
[2023-03-16] MEDS: CARBIDOPA/LEVODOPA 25/100 MG TABLET 1 TABLET PO ×3 (09:55→21:04)
[2023-03-16] MEDS: CARBIDOPA/LEVODOPA 12.5/50 MG TABLET 1 TABLET PO ×3 (09:55→21:03)
[2023-03-16] MEDS: SENNA/DOCUSATE SODIUM TABLET 2 TAB PO ×2 (09:55→17:23)
[2023-03-16] MEDS: ANASTROZOLE (*CHEMO) 1 MG TABLET PO (09:56)
[2023-03-16] MEDS: CHOLECALCIFEROL 1,000 UNITS TABLET 1000 UNITS PO (09:56)
[2023-03-16] MEDS: TIMOLOL MALEATE 0.5% OP SOLN 5 ML BOTTLE 1 DROP EACH EYE ×2 (09:56→17:24)
[2023-03-16] MEDS: polyethylene glycoL 3350 17 GM POWD.PACK PO (09:56)
[2023-03-16] MEDS: FAMOTIDINE 20 MG TABLET PO ×2 (09:56→21:04)
[2023-03-16 12:10] LABS: Basophils Percent Auto 0.1 % (0.2-1.2); Eosinophils Percent Auto 0.1 % (0-4.4); Hematocrit 37.6 % (37.0-47.0); Hemoglobin 12.6 g/dL (12.0-15.0); Immature Granulocyte Absolute 0.01 K/mm3 (0.00-0.031); Immature Granulocyte Percent A 0.1 % (0-0.5); Lymphocytes Absolute Auto 0.71 K/mm3 (0.9-3.2); Lymphocytes Percent Auto 10.5 % (18.3-44.2); Mean Corpuscular HGB Conc 33.5 g/dl (32-36); Mean Corpuscular Hemoglobin 31.7 pg (26-34); Mean Corpuscular Volume 94.7 fl (80-100); Mean Platelet Volume 10.3 fl (7.4-10.4); Monocytes Absolute Auto 0.5 K/mm3 (0.1-0.6); Monocytes Percent Auto 7.8 % (2.6-8.5); Neutrophils Absolute Auto 5.5 K/mm3 (1.3-6.7); Neutrophils Percent Auto 81.4 % (45.5-73.1); Platelet Count Result 167 k/mm3 (150-375); Red Blood Count 3.97 M/mm3 (4.2-5.4); Red Cell Distribution Width 12.1 % (11.5-14.5); White Blood Count 6.8 K/mm3 (4.5-10.0)
[2023-03-16 12:20] LABS: Alanine Aminotransferase 12 U/L (6-35); Albumin Level 3.6 g/dL (3.5-5.1); Alkaline Phosphatase 130 U/L (38-126); Anion Gap 8 mmol/L (8-16); Aspartate Amino Transferase 54 U/L (14-36); Bilirubin,Total 0.7 mg/dL (0.2-1.3); Blood Urea Nitrogen 6 mg/dL (7-17); Calcium 8.6 mg/dL (8.4-10.2); Carbon Dioxide 25 mmol/L (22-30); Chloride 102 mmol/L (98-107); Estimated CRCL calculation 54 ml/min; Estimated Glomerular Filt Rate > 60; Glucose 102 mg/dL (65-110); Potassium 3.8 mmol/L (3.4-5.0); Sodium 135 mmol/L (137-145)
[2023-03-16 14:00] VITALS: BP 121/73; PULSE 68; RESP 14; TEMP 36.6; O2SAT 98
[2023-03-16] MEDS: LATANOPROST 0.005% OP SOLN 2.5 ML BTL 1 DROP EACH EYE (17:23)
[2023-03-16] MEDS: RIVAROXABAN 10 MG TABLET PO (17:23)
[2023-03-16 19:38] VITALS: O2SAT 98
[2023-03-16 21:34] VITALS: BP 145/75; PULSE 68; RESP 14; TEMP 36.1; O2SAT 97
[2023-03-17 05:32] VITALS: BP 145/80; PULSE 56; RESP 13; TEMP 36.5; O2SAT 96
[2023-03-17] MEDS: BRIMONIDINE TARTRATE 0.2% OP SOLN 5 ML BTL 1 DROP EACH EYE ×3 (05:48→21:01)
[2023-03-17] MEDS: LEVOTHYROXINE SODIUM 50 MCG TABLET PO (05:48)
[2023-03-17] MEDS: ACETAMINOPHEN 500 MG TABLET 1000 MG PO ×3 (05:48→21:01)
[2023-03-17 07:20] LABS: Basophils Percent Auto 0.2 % (0.2-1.2); Eosinophils Percent Auto 0.3 % (0-4.4); Hematocrit 37.1 % (37.0-47.0); Hemoglobin 12.5 g/dL (12.0-15.0); Immature Granulocyte Absolute 0.02 K/mm3 (0.00-0.031); Immature Granulocyte Percent A 0.3 % (0-0.5); Lymphocytes Absolute Auto 0.94 K/mm3 (0.9-3.2); Lymphocytes Percent Auto 15.7 % (18.3-44.2); Mean Corpuscular HGB Conc 33.7 g/dl (32-36); Mean Corpuscular Hemoglobin 31.4 pg (26-34); Mean Corpuscular Volume 93.2 fl (80-100); Mean Platelet Volume 10.2 fl (7.4-10.4); Monocytes Absolute Auto 0.4 K/mm3 (0.1-0.6); Monocytes Percent Auto 6.3 % (2.6-8.5); Neutrophils Absolute Auto 4.6 K/mm3 (1.3-6.7); Neutrophils Percent Auto 77.2 % (45.5-73.1); Platelet Count Result 202 k/mm3 (150-375); Red Blood Count 3.98 M/mm3 (4.2-5.4); Red Cell Distribution Width 12.2 % (11.5-14.5)
[2023-03-17 07:30] LABS: Alanine Aminotransferase 13 U/L (6-35); Albumin Level 3.4 g/dL (3.5-5.1); Alkaline Phosphatase 138 U/L (38-126); Anion Gap 10 mmol/L (8-16); Aspartate Amino Transferase 37 U/L (14-36); Bilirubin,Total 0.7 mg/dL (0.2-1.3); Blood Urea Nitrogen 7 mg/dL (7-17); Calcium 8.7 mg/dL (8.4-10.2); Carbon Dioxide 24 mmol/L (22-30); Chloride 102 mmol/L (98-107); Estimated CRCL calculation 54 ml/min; Estimated Glomerular Filt Rate > 60; Glucose 97 mg/dL (65-110); Potassium 3.4 mmol/L (3.4-5.0); Sodium 136 mmol/L (137-145)
--- NOTE | 2023-03-17 07:54 | PM.IMPN ---
Progress Note: A&P Assessment and Plan (1) Closed subcapital fracture of neck of right femur: Qualifiers: Encounter type: initial encounter Qualified Code(s): S72.011A - Unspecified intracapsular fracture of right femur, initial encounter for closed fracture Code(s): S72.011A - Unspecified intracapsular fracture of right femur, initial encounter for closed fracture Status: Acute Assessment and Plan: Analgesics available as needed. Dr. Suarez consulted; plans are for surgery on 03/12. 03/13: POD 1 Right femoral neck pining. PT/OT ordered per surgery. Xarelto for DVT prophylaxis per ortho. Pain control per ortho. 03/17: Continues to recover well. Awaiting isolation bed at [facility]. (2) Fall from ground level: Code(s): W18.30XA - Fall on same level, unspecified, initial encounter Status: Acute Assessment and Plan: Patient had a mechanical fall, her walker got too far ahead of her. 03/13: PT/OT consulted. Rec's appreciated. 03/17: Continues to work with PT/OT> (3) Parkinson disease: Code(s): G20.A1 - Parkinson's disease without dyskinesia, without mention of fluctuations Status: Acute Assessment and Plan: Restarted carbidopa levodopa (4) Hypothyroidism: Code(s): E03.9 - Hypothyroidism, unspecified Status: Acute Assessment and Plan: Continue levothyroxine and check TSH. 03/13: TSH minimally low at 0.436.; Free thyroxine 1.28; Total T3 0.92. (5) Dyslipidemia: Code(s): E78.5 - Hyperlipidemia, unspecified Status: Acute Assessment and Plan: On Livalo. (6) Glaucoma: Code(s): H40.9 - Unspecified glaucoma Status: Acute Assessment and Plan: Continue timolol, latanoprost, and brimonidine. (7) Diarrhea: Code(s): R19.7 - Diarrhea, unspecified Status: Acute Assessment and Plan: 3 loose stools this morning patient has issues with chronic constipation given her parkinson's. Was on miralax and senna/colace BID. Hold laxative medications Obtain stool sample Plan Feeding:Heart Healthy diet Analgesia:[place] Thromboembolic prophylaxis: Xarelto Ulcer prophylaxis: H2 rafy Glycemic control: n/a Bowel regimen: senna and miralax with prn suppository. Lines: PIV Antibiotics: Cefazolin per SCIP Disposition: Accepted at [facility]. COVID positive but asymptomatic. Awaiting bed. Subjective Date/time seen: 03/17/23 07:54 Interval history: HPI obtained from the chart, This is a pleasant 72-year-old female with Parkinson's disease, hypothyroidism, glaucoma, and breast cancer who presented to the emergency department via private vehicle from [facility] for evaluation of right hip pain after a fall. She was walking down the [facility] living [facility] when she lost a hold of her walker and fell down onto the ground landing on her right side. She was eventually able to get off the floor with multiple assist is but she had significant pain bearing weight on the right leg due to pain in the hip. She denies head trauma. There was no loss of consciousness or prodromal symptoms leading up to the fall. At the time my evaluation she has only minimal discomfort however has pretty significant pain when trying to move that right leg. Vital signs have been stable since arrival. CMP and CBC were pretty unremarkable. Hip and pelvis x-ray shows mildly displaced and angulated right subcapital femoral neck fracture and she is being admitted in this setting for pain control and orthopedic consultation. 03/11:? Met with patient and her son this morning.? Patient reports her neck has been hurting but it is better after pain medication this morning.? CT head and Cervical Spine obtained in ER and interpreted as unremarkable by Radiology.? Dr. Suarez is planning to operate tomorrow.? Patient reports doing well this morning.? 03/12:? Patient to go to the operating room at 2:30 p.m. for hip repai
[2023-03-17] MEDS: SENNA/DOCUSATE SODIUM TABLET 2 TAB PO (07:55)
[2023-03-17] MEDS: ANASTROZOLE (*CHEMO) 1 MG TABLET PO (07:59)
[2023-03-17] MEDS: TIMOLOL MALEATE 0.5% OP SOLN 5 ML BOTTLE 1 DROP EACH EYE ×2 (07:59→16:15)
[2023-03-17] MEDS: polyethylene glycoL 3350 17 GM POWD.PACK PO (07:59)
[2023-03-17] MEDS: CHOLECALCIFEROL 1,000 UNITS TABLET 1000 UNITS PO (07:59)
[2023-03-17] MEDS: CARBIDOPA/LEVODOPA 25/100 MG TABLET 1 TABLET PO ×3 (07:59→21:01)
[2023-03-17] MEDS: CARBIDOPA/LEVODOPA 12.5/50 MG TABLET 1 TABLET PO ×3 (07:59→21:01)
[2023-03-17] MEDS: FAMOTIDINE 20 MG TABLET PO ×2 (07:59→21:01)
[2023-03-17 14:00] VITALS: BP 119/77; PULSE 55; RESP 16; TEMP 36.1; O2SAT 95
[2023-03-17] MEDS: RIVAROXABAN 10 MG TABLET PO (16:15)
[2023-03-17 19:43] VITALS: O2SAT 95
[2023-03-17] MEDS: LATANOPROST 0.005% OP SOLN 2.5 ML BTL 1 DROP EACH EYE (21:01)
[2023-03-17 22:00] VITALS: BP 130/75; PULSE 57; RESP 18; TEMP 36.2; O2SAT 100
[2023-03-18 05:10] VITALS: BP 148/65; PULSE 65; RESP 18; TEMP 36.1; O2SAT 97
[2023-03-18] MEDS: ACETAMINOPHEN 500 MG TABLET 1000 MG PO ×3 (06:04→21:22)
[2023-03-18] MEDS: LEVOTHYROXINE SODIUM 50 MCG TABLET PO (06:04)
[2023-03-18] MEDS: BRIMONIDINE TARTRATE 0.2% OP SOLN 5 ML BTL 1 DROP EACH EYE ×2 (06:04→14:34)
[2023-03-18 08:00] VITALS: BP 134/66; PULSE 55; RESP 16; TEMP 35.8; O2SAT 96
[2023-03-18] MEDS: CARBIDOPA/LEVODOPA 12.5/50 MG TABLET 1 TABLET PO ×3 (08:59→21:21)
[2023-03-18] MEDS: FAMOTIDINE 20 MG TABLET PO ×2 (08:59→21:21)
[2023-03-18] MEDS: ANASTROZOLE (*CHEMO) 1 MG TABLET PO (08:59)
[2023-03-18] MEDS: CHOLECALCIFEROL 1,000 UNITS TABLET 1000 UNITS PO (08:59)
[2023-03-18] MEDS: TIMOLOL MALEATE 0.5% OP SOLN 5 ML BOTTLE 1 DROP EACH EYE ×2 (08:59→17:26)
[2023-03-18] MEDS: CARBIDOPA/LEVODOPA 25/100 MG TABLET 1 TABLET PO ×3 (08:59→21:21)
--- NOTE | 2023-03-18 10:40 | PM.DS ---
DS: Admitting Diagnosis Discharge Date 03/18/2023 Admitting Diagnosis Closed subcapital fracture of neck of right femur, fall from ground level, Parkinson's disease, hypothyroidism, dyslipidemia, glaucoma DS: Discharge Diagnosis Discharge Diagnosis (1) Closed subcapital fracture of neck of right femur: Qualifiers: Encounter type: initial encounter Qualified Code(s): S72.011A - Unspecified intracapsular fracture of right femur, initial encounter for closed fracture Code(s): S72.011A - Unspecified intracapsular fracture of right femur, initial encounter for closed fracture Status: Acute (2) Fall from ground level: Code(s): W18.30XA - Fall on same level, unspecified, initial encounter Status: Acute (3) Parkinson disease: Code(s): G20.A1 - Parkinson's disease without dyskinesia, without mention of fluctuations Status: Acute (4) Hypothyroidism: Code(s): E03.9 - Hypothyroidism, unspecified Status: Acute (5) Dyslipidemia: Code(s): E78.5 - Hyperlipidemia, unspecified Status: Acute (6) Glaucoma: Code(s): H40.9 - Unspecified glaucoma Status: Acute (7) Diarrhea: Code(s): R19.7 - Diarrhea, unspecified Status: Acute DS: Summary Hospital Course Reason for hospitalization: History of Parkinson's with a ground level fall right hip fracture Hospital Course: This is a 72-year-old female patient who was treated for right hip fracture undergoing fluoroscopically assisted pinning in-situ right femoral neck fracture with Dr. Suarez on 03/12/2023. Patient participating well with therapy but must remain toe-touch weight-bearing only to the right lower extremity for 8 weeks. Currently patient is unable to maintain these restrictions independently thus she will go to SNF for further rehabilitation. Patient was ready to be discharged but she tested positive for COVID thus discharge was held up over the weekend until SNF could get an isolation room available for this patient. Status at Discharge Cognitive/behavioral status at discharge: Awake alert oriented depressed mood but pleasant Functional status at discharge: uses cane/walker Overall status at discharge: patient is progressing back to baseline Time Spent with Patient Time attestation: Total time spent providing and/or coordinating discharge services: 40 minutes Time spent: Greater than 30 minutes Exam Narrative: General: well appearing, well developed, well nourished, appears stated age. HEENT: normocephalic, atraumatic. Mucous membranes moist. EOMI, PERRLA, bilateral sclera anicteric, no conjunctival injection. Neck supple without JVD, lymphadenopathy, or bruit. Respiratory: clear to auscultation bilaterally. No rales/rhonchi/wheezes. Cardiovascular: Regular rate and rhythm, normal S1-S2 upon auscultation. No murmurs, rubs, or clicks. PMI is nondisplaced, capillary re-fill less than 3 second. Abdomen: Soft, flat, no pulsatile masses, non-distended and non-tender. No rebound, no guarding. No CVA tenderness, no hepatosplenomegaly. Bowel sounds hypoactive to all four quadrants. Extremities: No cyanosis, clubbing, or edema present. Pulses are palpable 2/2. Active ROM to all four extremities with toe touch weight bearing status to RLE. Neuro: Alert and orientated x 4. PERRLA. Cranial nerves 2-12 intact without focal deficit. Skin: Warm, dry, and intact, without rash, erythema, or lesion. Lines: PIV Incisions: Right hip surgical incision is unable to view with surgical dressing in place. C/D/I. Psych: pleasant, cooperative, significantly depressed DS: Data Data Completed and Pending Completed studies during hospitalization: Chest x-ray, right hip and pelvis x-ray, head CT, C-spine CT intraoperative fluoroscopy x-ray right hip Procedures/Treatments: Fluoroscopically assisted pending in-situ right femoral neck fracture Discharge Plan Discharge Attending physician on discharge: Bryce
[2023-03-18 11:53] VITALS: BP 120/71; PULSE 73; RESP 18; TEMP 35.6; O2SAT 97
--- NOTE | 2023-03-18 13:11 | PCNWS ---
Weekly nutritional screen. Patient is tolerating current heart healthy diet with adequate intake 50-100% all meals. No weight loss reported. No nutritional needs at this time.
[2023-03-18 16:00] VITALS: BP 135/66; PULSE 65; RESP 16; TEMP 35.7; O2SAT 98
[2023-03-18] MEDS: RIVAROXABAN 10 MG TABLET PO (17:26)
[2023-03-18 20:00] VITALS: O2SAT 98
[2023-03-18 21:01] VITALS: BP 126/93; PULSE 79; O2SAT 100
[2023-03-18] MEDS: LATANOPROST 0.005% OP SOLN 2.5 ML BTL 1 DROP EACH EYE (21:21)
== END 2023-03-18 21:32 | DRG 480 ==
LOC: ANHED 15:55 → ANH3MEDSUR 17:19
PROVIDERS: Internal Medicine; Nurse Practitioner Acute Care; Orthopaedic Surgery; Physician Assistant; Admitting Provider Internal Medicine; Emergency Provider Student in an Organized Health Care Education/Training Program; PCP Internal Medicine; Visit Provider Nurse Practitioner
PROC: 0QH634Z Insertion of Internal Fixation Device into Right Upper Femur, Percutaneous Approach (ICD-10-PCS; principal; 2023-03-12 14:30)
DX: S72.011A Unspecified intracapsular fracture of right femur, initial encounter for closed fracture (principal); U07.1 COVID-19; G20.A1 Parkinson's disease without dyskinesia, without mention of fluctuations; W18.39XA Other fall on same level, initial encounter; H40.9 Unspecified glaucoma; E03.9 Hypothyroidism, unspecified; E78.5 Hyperlipidemia, unspecified; E78.00 Pure hypercholesterolemia, unspecified; R19.7 Diarrhea, unspecified; Z66 Do not resuscitate; Z87.891 Personal history of nicotine dependence; Z85.3 Personal history of malignant neoplasm of breast
CPT/HCPCS: 36415; 70450; 71045; 72125; 73502; 80048; 80053; 80069; 81001; 81003; 83735; 84439; 84443; 84480; 85025; 85027; 85055; 85610; 85730; 87637; 97110; 97116; 97161; 97166; 97530; 97535; 99199; 99285; A9270; C1713; J0690; J1100; J1170; J1650; J2270; J2405; J2704; J3010; J7030; J7120